=== PATIENT | female | born 1940 | race Caucasian/White ===

== ENCOUNTER 2017-05-25 20:40 | Emergency (ER) | payer MEDICARE, SELFPAY ==
[2017-05-25 21:16] VITALS: BP 131/53; PULSE 79; RESP 20; TEMP 36.9; O2SAT 98; BMI 31.6
--- NOTE | 2017-05-25 21:20 | HMH.EDUTC ---
[facility] [place] Disposition Clinical Impression: Gastroenteritis Disposition: Home, Self-Care Condition on Discharge: Good Instructions: DI for Viral Gastroenteritis -- Adult Additional Instructions: f/u with Dr Magdaleno Walker as scheduled Prescriptions: Ondansetron [Zofran 8mg ODT] 8 mg PO TID PRN 5 Days #15 tab PRN Reason: Vomiting Referrals: Elvin Dolan MD [Primary Care Provider] - Time of Disposition: 21:40 Medical Decision Making - Medical Records Medical records reviewed: Yes: I reviewed the patient's medical records. - Miko Inquiry Pt receiving controlled substance: No Vital Signs: 05/25/17 21:16 Temperature 98.5 F Temperature Source Temporal Artery Scan Pulse Rate [Right Radial] 79 Respiratory Rate 20 Blood Pressure [Right Arm] 131/53 Blood Pressure Mean [Right Arm] 79 02 Sat by Pulse Oximetry 98 Oxygen Delivery Method Room Air - Lab Data Lab results reviewed: Yes: I reviewed the patient's lab results. Orders (Tests/Meds): ED MEDICATIONS Discontinued Medications Generic Name Dose Route Start Last Admin Trade Name Freq PRN Reason Stop Dose Admin Ondansetron HCl 4 mg 05/25/17 21:29 05/25/17 21:31 Zofran 4mg Odt SL 05/25/17 21:30 4 mg ONCE ONE Administration [facility] [place] HPI - General Stated complaint: V/D Time Seen by Provider: 05/25/17 21:15 Mode of Arrival: Family Vehicle Limitations: No Limitations Description of Symptoms (Recalled from Triage Doc. by RN): PT C/O DIARRHEA, ABDOMINAL PAIN, BODY ACHES, CHILLS,FEVER SINCE THIS AM. HEENT Symptoms (Recalled from RN notes): Yes (BODY ACHES, CHILLS,FEVER) Resp Symptoms (Recalled from RN notes): No Skin Symptoms (Recalled from RN notes): No MS Symptoms (Recalled from RN notes): No Functional Status (Recalled from RN notes): NA - History of Present Illness Provider Complaint: Patient was awakened from sleep this am with epigastric pain. Vomited X 1. Has had numerous episodes of diarrrhea. Has had chills and aches. No fever. Has tolerated liquids. Burning in epigastric region. No LLQ pain. No hematuria. Does have history of diverticulitis. No recent antibiotics. Took Pepto Bismol. Diarrhea has slowed. Onset (ago): hour(s) (15) Location: abdomen Associated symptoms: fever/chills, malaise Treatments prior to arrival: none - Related Data Previous Rx's Medication Instructions Recorded Ondansetron [Zofran 8mg ODT] 8 mg PO TID PRN 5 Days #15 tab 05/25/17 Allergies Allergy/AdvReac Type Severity Reaction Status Date / Time No Known Allergies Allergy Unverified 02/25/17 14:41 - Worker's Comp Is this a Worker's Comp case?: No [facility] History I have reviewed the patient's past medical history: Yes Medical History: Reports:: Diabetes Mellitus Type 2 Denies:: Cancer, Diabetes Mellitus Type 1, MRSA Amputation: No Fractures: No - Social History Smoking Status: Never smoker Alcohol Intake: never - Psychiatric History Expresses thoughts of harming self/others: None Suicide Plan Description: No Plan ROS Obtained: Yes All systems reviewed & no additional complaints - Constitutional Constitutional: Reports body ache, Reports chills - Gastrointestinal Gastrointestingal: Reports: diarrhea, vomiting Physical Exam - General General appearance: alert, in no apparent distress - Head Head exam: atraumatic, normocephalic, normal inspection - Eye Eye exam: Present: normal appearance, PERRL, EOMI - ENT ENT exam: Present: normal exam, normal oropharynx, mucous membranes moist, TM's normal bilaterally, normal external ear exam - Neck Neck exam: Present: normal inspection, full ROM, trachea midline. Absent: meningismus, lymphadenopathy - Chest Chest inspection: Present: normal inspection, symmetric chest wall rise. Absent: tenderness - Respiratory Respiratory exam: Present: normal lung sounds bilaterally. Absent: respiratory distress - Cardiovascular Cardiovascular exam: Presen
--- NOTE | 2017-05-25 21:31 | ED_ITS ---
[facility] [place] Disposition Clinical Impression: Gastroenteritis Disposition: Home, Self-Care Condition on Discharge: Good Instructions: DI for Viral Gastroenteritis -- Adult Additional Instructions: f/u with Dr Magdaleno Walker as scheduled Prescriptions: Ondansetron [Zofran 8mg ODT] 8 mg PO TID PRN 5 Days #15 tab PRN Reason: Vomiting Referrals: Elvin Dolan MD [Primary Care Provider] - Time of Disposition: 21:40 Medical Decision Making - Medical Records Medical records reviewed: Yes: I reviewed the patient's medical records. - Miko Inquiry Pt receiving controlled substance: No Vital Signs: 05/25/17 21:16 Temperature 98.5 F Temperature Source Temporal Artery Scan Pulse Rate [Right Radial] 79 Respiratory Rate 20 Blood Pressure [Right Arm] 131/53 Blood Pressure Mean [Right Arm] 79 02 Sat by Pulse Oximetry 98 Oxygen Delivery Method Room Air - Lab Data Lab results reviewed: Yes: I reviewed the patient's lab results. Orders (Tests/Meds): ED MEDICATIONS Discontinued Medications Generic Name Dose Route Start Last Admin Trade Name Freq PRN Reason Stop Dose Admin Ondansetron HCl 4 mg 05/25/17 21:29 05/25/17 21:31 Zofran 4mg Odt SL 05/25/17 21:30 4 mg ONCE ONE Administration [facility] [place] HPI - General Stated complaint: V/D Time Seen by Provider: 05/25/17 21:15 Mode of Arrival: Family Vehicle Limitations: No Limitations Description of Symptoms (Recalled from Triage Doc. by RN): PT C/O DIARRHEA, ABDOMINAL PAIN, BODY ACHES, CHILLS,FEVER SINCE THIS AM. HEENT Symptoms (Recalled from RN notes): Yes (BODY ACHES, CHILLS,FEVER) Resp Symptoms (Recalled from RN notes): No Skin Symptoms (Recalled from RN notes): No MS Symptoms (Recalled from RN notes): No Functional Status (Recalled from RN notes): NA - History of Present Illness Provider Complaint: Patient was awakened from sleep this am with epigastric pain. Vomited X 1. Has had numerous episodes of diarrrhea. Has had chills and aches. No fever. Has tolerated liquids. Burning in epigastric region. No LLQ pain. No hematuria. Does have history of diverticulitis. No recent antibiotics. Took Pepto Bismol. Diarrhea has slowed. Onset (ago): hour(s) (15) Location: abdomen Associated symptoms: fever/chills, malaise Treatments prior to arrival: none - Related Data Previous Rx's Medication Instructions Recorded Ondansetron [Zofran 8mg ODT] 8 mg PO TID PRN 5 Days #15 tab 05/25/17 Allergies Allergy/AdvReac Type Severity Reaction Status Date / Time No Known Allergies Allergy Unverified 02/25/17 14:41 - Worker's Comp Is this a Worker's Comp case?: No [facility] History I have reviewed the patient's past medical history: Yes Medical History: Reports:: Diabetes Mellitus Type 2 Denies:: Cancer, Diabetes Mellitus Type 1, MRSA Amputation: No Fractures: No - Social History Smoking Status: Never smoker Alcohol Intake: never - Psychiatric History Expresses thoughts of harming self/others: None Suicide Plan Description: No Plan ROS Obtained: Yes All systems reviewed & no additional complaints - Constitutional Constitutional: Reports body ache, Reports chills - Gastrointestinal Gastrointestingal: Reports: diarrhea, vomiting Physical Exam - General
[2017-05-25 21:41] VITALS: BP 129/89; PULSE 72; RESP 18; TEMP 36.8; O2SAT 100
[2017-05-28 09:29] LABS: UTC Influenza A Antigen Negative (Negative); UTC Influenza B Antigen Negative (Negative)
== END 2017-05-25 21:43 | disposition home or self-care (01) ==
PROVIDERS: Emergency Provider Physician Assistant; Family Provider Internal Medicine Adolescent Medicine; PCP Internal Medicine Adolescent Medicine
DX: K52.9 Noninfective gastroenteritis and colitis, unspecified (principal); R10.13 Epigastric pain; E11.9 Type 2 diabetes mellitus without complications
CPT/HCPCS: G0463; 87804; 99201

== ENCOUNTER → 2017-07-25 13:05 | Outpatient (CLI) | payer MEDICARE, SELFPAY ==
--- NOTE | 2017-07-25 | XR_ITS ---
XR knee RT 3V HISTORY: Posttraumatic pain ITS.REASON: FALL..PAIN ORDERING PHYSICIAN: Jazmine Verduzco PATIENT AGE: 76 years COMPARISON: None FINDINGS: Moderate to severe osteoarthritic changes are present involving the medial compartment and patellofemoral joint with mild osteoarthritic change of the lateral compartment. No acute fracture or dislocation is evident. No lytic or blastic change. There may be a small suprapatellar effusion. There is pain calcification in the suprapatellar region. IMPRESSION: Moderate to severe osteoarthritis, no acute fracture
--- NOTE | 2017-07-25 13:32 | CT_ITS ---
CT head/brain wo con HISTORY: Headache, pain, contusion/laceration along the right side with radiation following injury ITS.REASON: FALL ORDERING PHYSICIAN: Jazmine Verduzco PATIENT AGE: 76 years COMPARISON: None TECHNIQUE: Axial images obtained without contrast. Brain and bone windows reviewed. All CT scans at the facility use one or more dose reduction, viz: automated exposure control; ma/kV adjustment per patient size (including targeted exams where dose is matched to indication; i.e. head); or iterative reconstruction technique. FINDINGS: No midline shift, mass effect, intracranial hemorrhage, hydrocephalus, or extra-axial fluid collection is evident. There is soft tissue swelling in the right frontal region in the supraorbital area The calvarium has an unremarkable appearance. No mastoid effusion. No sinus air-fluid levels.. IMPRESSION: 1. No acute intracranial findings. 2. Right supraorbital hematoma
--- NOTE | 2017-07-25 13:32 | CT_ITS ---
CT facial bones wo con CLINICAL INDICATION: Facial pain and swelling/hematoma/abrasion following injury to the right eye ITS.REASON: FALL ORDERING PHYSICIAN: Jazmine Verduzco PATIENT AGE: 76 years COMPARISON: None TECHNIQUE:Axial, sagittal, and coronal images are generated and reviewed without contrast. All CT scans at the facility use one or more dose reduction, viz: automated exposure control; ma/kV adjustment per patient size (including targeted exams where dose is matched to indication; i.e. head); or iterative reconstruction technique. FINDINGS: Moderate soft tissue swelling is present in the right supraorbital region and frontal area consistent with hematoma. No fracture evident. The right globe has an unremarkable appearance. No sinus air-fluid level. No radio opaque foreign bodies. There is a small right mildred bullosa as a normal variant. Osteoarthritic changes are present at the TMJs There is cortical irregularity with cystic changes involving the right nasal bone distally. This is of uncertain clinical significance. No soft tissue swelling is evident at this area. This could be related to old fracture. Please correlate clinically. IMPRESSION: 1. No definite acute fracture. 2. Right supraorbital/frontal scalp hematoma 3. Cortical irregularity of the right nasal bone distally without soft tissue swelling which may be due to old fracture. Please correlate with clinical findings
== END ==
PROVIDERS: PCP Internal Medicine Adolescent Medicine; Visit Provider Nurse Practitioner Family
DX: M25.561 Pain in right knee (principal); T14.8XXA Other injury of unspecified body region, initial encounter; W19.XXXA Unspecified fall, initial encounter
CPT/HCPCS: 70450; 70486; 73562

== ENCOUNTER → 2017-12-15 10:13 | Outpatient (CLI) | payer MEDICARE, SELFPAY ==
--- NOTE | 2017-12-15 10:18 | CA_ITS ---
PROCEDURE: 2-D M-mode and color Doppler study INDICATIONS FOR THE TEST: Chest pain COPD Heart Murmur Tobacco Smoking Palpitations Fatigue Syncope Edema Hypertension+Diabetes Mellitus Rheumatic Fever SOB+MONROE Obesity+Hyperlipidemia Family History HD Additional History CHF PATIENT INFORMATION HEIGHT: 68 WEIGHT:208 GENDER: Female B/P:120/74 2-D/M-MODE INTERPRETATION: 2-D MEASUREMENTS OBSERVED VALUES IN CMS Right Ventricular Dimension (RVDd) 2.6 Interventricular Septum (Thickness)(IVsd) 1.4 Left Ventricular Internal Dimensions(LVIDd) 4.7 Left Ventricular Posterior Wall (Thickness)(LVPWd) 1.5 Aortic Root 3.4 Aortic Cusp Separation 1.9 Left Atrial Dimensions (LAD) 4.0 2D 1. Left atrium is mildly enlarged, left ventricle is normal size, mild concentric left ventricular hypertrophy, visually estimated ejection fraction 50% with no regional wall motion abnormality, endocardial surfaces are poorly visualized. 2. The right atrium and right ventricle are normal size and contractility. 3. The aortic valve is minimally thickened and fibrosed. 4. The mitral and tricuspid valve leaflets are minimally thickened 5. The pulmonic valve is poorly visualized. 6. No significant pericardial effusion noted. DOPPLER INTERROGATION: Doppler interrogation of the aortic, mitral and tricuspid valvular presence of moderate mitral and mild tricuspid regurgitation, tricuspid regurgitation jet velocity is insufficient for calculation of the right ventricular systolic pressure, grade 1 diastolic dysfunction seen with tissue Doppler evidence of raised left atrial pressure. CONCLUSION: 1. Mildly enlarged left atrium, normal left ventricular size, mild concentric left ventricular hypertrophy, visually estimated ejection fraction 50% with no regional wall motion abnormality, grade 1 diastolic dysfunction seen with tissue Doppler evidence of raised left atrial pressure. 2. Moderate mitral and mild tricuspid regurgitation 3. No significant pericardial effusion noted.
[2017-12-15 10:40] VITALS: PULSE 54; PULSE 60
== END ==
PROVIDERS: Family Provider Internal Medicine Adolescent Medicine; PCP Internal Medicine Adolescent Medicine; Visit Provider Internal Medicine Adolescent Medicine
DX: R06.02 Shortness of breath (principal); I50.30 Unspecified diastolic (congestive) heart failure
CPT/HCPCS: 93306; 94060; 94640; 94726; 94729

== ENCOUNTER → 2019-03-15 15:23 | Outpatient (CLI) | payer MEDICARE, SELFPAY ==
--- NOTE | 2019-03-15 15:28 | XR_ITS ---
PROCEDURE: XR CHEST 2V CLINICAL HISTORY: COUGH COMPARISON: CXR CHEST(2 VIEWS-NOT PORTABLE) from 06/25/2013 CXR CHEST(2 VIEWS-NOT PORTABLE) from 07/14/2014 CXR CHEST(2 VIEWS-NOT PORTABLE) from 06/27/2016 FINDINGS: The cardiomediastinal silhouette and pulmonary vascularity are within normal limits. There are chronic changes in the lung bases with some increased density in the right lung base with some silhouetting out of the hemidiaphragm suggesting superimposed infiltrate. No acute bony abnormalities. IMPRESSION: Chronic change with suspected right basilar atelectasis or infiltrate Dictated by: Sid Greene MD 03/15/2019 19:31 Electronically signed by Sid Greene MD in [place] 03/15/2019 19:31
== END ==
PROVIDERS: PCP Internal Medicine Adolescent Medicine; Visit Provider Internal Medicine Adolescent Medicine
DX: R05 Cough (principal)
CPT/HCPCS: 71046

== ENCOUNTER → 2019-04-21 11:01 | Outpatient (CLI) | payer MEDICARE, SELFPAY ==
[2019-04-21 14:25] LABS: Alanine Aminotransferase 28 U/L (9-52); Albumin Level 3.7 g/dL (3.4-5.0); Albumin/Globulin Ratio 1.2 (1.1-1.8); Alkaline Phosphatase 121 U/L (46-116); Anion Gap 13.4 mEq/L (5-15); Aspartate Amino Transferase 15 U/L (15-37); Bilirubin,Total 0.4 mg/dL (0.2-1.0); Blood Urea Nitrogen 28 mg/dL (7-18); Calcium 9.2 mg/dL (8.5-10.1); Carbon Dioxide 30 mmol/L (21.0-32.0); Chloride 108 mmol/L (98-107); Chol/HDL Ratio 3.1 (1-3.5); Cholesterol 213 mg/dL (140-200); Creatinine,Serum 1.26 mg/dL (0.55-1.02); Estimated Glomerular Filt Rate 41 ml/min (>60); GFR (African American) 50 ML/MIN (>60); Glucose 82 mg/dL (74-106); HDL Cholesterol 68 mg/dL (29-89); LDL Cholesterol 133 mg/dL (0-130); Potassium 4.4 mmoL/L (3.5-5.1); Sodium 147 mmol/L (137-145); Total Protein,Serum 6.7 g/dL (6.4-8.2); Triglycerides 59 mg/dL (30-200); VLDL Cholesterol 12 mg/dL (0-40)
== END ==
PROVIDERS: Visit Provider Nurse Practitioner Family
DX: Z00.00 Encounter for general adult medical examination without abnormal findings (principal); E78.5 Hyperlipidemia, unspecified; M10.9 Gout, unspecified
CPT/HCPCS: 36415; 80053; 80061; 84550

== ENCOUNTER → 2019-08-17 13:17 | Outpatient (CLI) | payer MEDICARE, SELFPAY ==
[2019-08-17 14:13] LABS: Basophils % 0.6 % (0.1-2.0); Eosinophils # 0.2 K/mm3 (0.0-0.4); Eosinophils % 2.4 % (0.1-12.0); Hematocrit 37.1 % (37.0-47.0); Hemoglobin 12.2 g/dL (12.2-16.2); Lymphocytes # 1.9 K/mm3 (0.7-4.5); Mean Corpuscular HGB Conc 32.9 g/dL (31.8-35.4); Mean Corpuscular Hemoglobin 31.2 pg (27.0-31.2); Mean Corpuscular Volume 94.8 fl (81-99); Mean Platelet Volume 8.6 fl (7.4-10.4); Monocytes # 0.3 K/mm3 (0.1-1.0); Monocytes % 4.9 % (1.7-9.3); Neutrophils # 4.5 K/mm3 (1.8-7.8); Neutrophils % 65.1 % (37.0-80.0); Platelet Count 163 K/mm3 (142-424); Red Blood Count 3.92 M/mm3 (4.20-5.40); Red Cell Distribution Width 13.6 % (11.5-17.5)
[2019-08-17 14:40] LABS: Alanine Aminotransferase 15 U/L (12-78); Albumin Level 4.4 g/dl (3.5-5.0); Albumin/Globulin Ratio 1.6 (1.1-1.8); Alkaline Phosphatase 116 U/L (38-126); Anion Gap 13.7 mEq/L (5-15); Aspartate Amino Transferase 25 U/L (14-36); Bilirubin,Total 0.5 mg/dl (0.2-1.3); Blood Urea Nitrogen 36 mg/dl (7-17); Calcium 10.4 mg/dl (8.4-10.2); Carbon Dioxide 31 mmol/L (22.0-30.0); Chloride 100 mmol/L (98-107); Chol/HDL Ratio 2.3 (1-3.5); Cholesterol 202 mg/dl (140-200); Estimated Glomerular Filt Rate 44 ml/min (>60); GFR (African American) 53 ML/MIN (>60); Globulin 2.8 g/dL (1.3-3.2); Glucose 99 mg/dl (74-100); HDL Cholesterol 89 mg/dl (40-60); Potassium 4.7 mmoL/L (3.5-5.1); Sodium 140 mmol/L (136-145); Total Protein,Serum 7.2 g/dl (6.3-8.2); Triglycerides 63 mg/dl (30-150); VLDL Cholesterol 13 mg/dL (0-40)
[2019-08-17 14:49] LABS: NT Pro Brain Natriuretic Pep. 206 pg/mL (0-450)
[2019-08-17 14:52] LABS: Direct LDL Cholesterol 112.22 mg/dL (100-129)
[2019-08-17 17:14] LABS: Hemoglobin A1C 5.4 % (4.0-6.0)
[2019-08-19 09:13] LABS: Vitamin B12 542 pg/mL (232-1245); Vitamin D 25 Hydroxy 29.2 ng/mL (30.0-100.0)
== END ==
PROVIDERS: Visit Provider Internal Medicine Adolescent Medicine
DX: E78.5 Hyperlipidemia, unspecified (principal); G60.9 Hereditary and idiopathic neuropathy, unspecified; I50.30 Unspecified diastolic (congestive) heart failure; E55.9 Vitamin D deficiency, unspecified
CPT/HCPCS: 36415; 80053; 80061; 82607; 82652; 83036; 83880; 85025

== ENCOUNTER → 2020-01-13 13:03 | Outpatient (CLI) | payer MEDICARE, SELFPAY ==
--- NOTE | 2020-01-13 13:09 | XR_ITS ---
PROCEDURE: XR CHEST PORTABLE CLINICAL HISTORY: COVID OUT PATIENT Shortness of breath, cough COMPARISON: No exams were available for comparison FINDINGS: Mild cardiomegaly without failure. There is evidence of old granulomatous disease. There are chronic changes in the right lung base. There is some silhouetting out of the right hemidiaphragm which could be seen with right basilar infiltrate. Upright PA and lateral chest may provide further evaluation. No acute bony abnormalities. IMPRESSION: Cardiomegaly with chronic changes with possible right basilar infiltrate Dictated by: Sid Greene MD 01/13/2020 14:33 Sid Greene MD in [place] 01/13/2020 14:33
[2020-01-13 15:28] LABS: Basophils # 0.1 K/mm3 (0-0.2); Basophils % 1.4 % (0.1-2.0); Eosinophils # 0.3 K/mm3 (0.0-0.4); Eosinophils % 3.9 % (0.1-12.0); Hemoglobin 12.6 g/dL (12.2-16.2); Lymphocytes # 1.8 K/mm3 (0.7-4.5); Lymphocytes % 24.8 % (10-50); Mean Corpuscular HGB Conc 31.6 g/dL (31.8-35.4); Mean Corpuscular Hemoglobin 30.4 pg (27.0-31.2); Mean Corpuscular Volume 96.2 fl (81-99); Mean Platelet Volume 9.7 fl (7.4-10.4); Monocytes # 0.5 K/mm3 (0.1-1.0); Monocytes % 7.4 % (1.7-9.3); Neutrophils # 4.5 K/mm3 (1.8-7.8); Neutrophils % 62.5 % (37.0-80.0); Platelet Count 180 K/mm3 (142-424); Red Blood Count 4.15 M/mm3 (4.20-5.40); White Blood Count 7.1 K/mm3 (4.8-10.8)
[2020-01-13 15:45] LABS: Chloride 103 mmol/L (98-107); Potassium 4.5 mmoL/L (3.5-5.1); Sodium 141 mmol/L (136-145)
[2020-01-13 15:48] LABS: Alanine Aminotransferase 30 U/L (12-78); Albumin Level 4.1 g/dl (3.5-5.0); Albumin/Globulin Ratio 1.6 (1.1-1.8); Alkaline Phosphatase 92 U/L (38-126); Anion Gap 12.5 mEq/L (5-15); Aspartate Amino Transferase 34 U/L (14-36); Bilirubin,Total 0.3 mg/dl (0.2-1.3); Blood Urea Nitrogen 32 mg/dl (7-17); Carbon Dioxide 30 mmol/L (22.0-30.0); Estimated Glomerular Filt Rate 44 ml/min (>60); GFR (African American) 53 ML/MIN (>60); Globulin 2.6 g/dL (1.3-3.2); Total Protein,Serum 6.7 g/dl (6.3-8.2)
[2020-01-13 15:49] LABS: Calcium 9.8 mg/dl (8.4-10.2); Glucose 94 mg/dl (74-100)
[2020-01-13 16:23] LABS: Coronavirus 19 IgG Antibody Negative (Negative); Coronavirus 19 IgM Antibody Negative (Negative)
[2020-01-13 17:34] LABS: Erythrocyte Sedimentation Rate 132 mm/hr (0-30)
== END ==
PROVIDERS: PCP Internal Medicine Adolescent Medicine; Visit Provider Internal Medicine Adolescent Medicine
DX: Z03.818 Encounter for observation for suspected exposure to other biological agents ruled out (principal); R05 Cough; J18.9 Pneumonia, unspecified organism
CPT/HCPCS: 36415; 71045; 80053; 85025; 85651; 86328

== ENCOUNTER → 2020-07-13 13:33 | Outpatient (CLI) | payer MEDICARE, SELFPAY ==
--- NOTE | 2020-07-13 13:38 | XR_ITS ---
PROCEDURE: XR LUMBAR SPINE MIN 4V CLINICAL INDICATION: LOW BACK PAIN AT MULTIPLE SITES COMPARISON: No exams were available for comparison FINDINGS: Mild lumbar curvature convex left. Multilevel degenerative disc disease from L1-S1 most progressed at L3-L4 and L5-S1. Endplate osteophytes are present from L1-S1. No acute fracture or dislocation. No lytic or blastic change. There is mild facet arthritic changes L5-S1. The SI joints have an unremarkable appearance. There is a moderate amount of retained colonic feces. Mild osteoarthritic changes are present in the hips IMPRESSION: Multilevel lumbar spondylosis as described above. Dictated by: Sid Greene MD 07/13/2020 14:10 Sid Greene MD in [place] 07/13/2020 14:10
== END ==
PROVIDERS: PCP Internal Medicine Adolescent Medicine; Visit Provider Internal Medicine Adolescent Medicine
DX: M54.5 Low back pain (principal)
CPT/HCPCS: 72110

== ENCOUNTER → 2020-09-18 11:45 | Outpatient (CLI) | payer MEDICARE, SELFPAY ==
--- NOTE | 2020-09-18 11:49 | XR_ITS ---
PROCEDURE: XR ANKLE RT MIN 3V CLINICAL INDICATION: CELLULITIS OF RT ANKLE COMPARISON: No exams were available for comparison FINDINGS: No fracture or dislocation. No lytic or blastic change. There is normal mineralization. Minimal soft tissue swelling noted along the lateral aspect of the ankle with suggestion of a small cutaneous defect. No bony destructive changes. There is a thin linear calcific density along the medial malleolar region and may represent an old avulsion fracture. There is a small calcaneal spur. Degenerative changes are present in the foot at the navicular cuneiform and there are prominent posterior osteophytes at the tarsal metatarsal junction. IMPRESSION: No evidence of osteomyelitis. Mild soft tissue swelling lateral malleolar region with questionable cutaneous defect Degenerative changes of the midfoot and possible old avulsion fracture of the medial malleolus Dictated by: Sid Greene MD 09/18/2020 12:18 Sid Greene MD in [place] 09/18/2020 12:18
== END ==
PROVIDERS: PCP Internal Medicine Adolescent Medicine; Visit Provider Internal Medicine Adolescent Medicine
DX: L03.115 Cellulitis of right lower limb (principal)
CPT/HCPCS: 73610

== ENCOUNTER → 2021-01-17 07:45 | Outpatient (CLI) | payer MEDICARE, SELFPAY ==
--- NOTE | 2021-01-17 07:52 | MR_ITS ---
PROCEDURE INFORMATION: Exam: MR Right Lower Extremity Joint Without Contrast; Ankle Exam date and time: 01/17/2021 7:52 AM Age: 80 years old Clinical indication: Pain; Ankle; Right; Additional info: Cellulitis of right ankle. Lateral sided ankle pain. Reddness [id number]. No injury or trauma. -prior x-ray 09-18-20 TECHNIQUE: Imaging protocol: MR of the Right lower extremity without contrast. Exam focused on the ankle. COMPARISON: CR XR ANKLE RT MIN 3V 09/18/2020 12:02 PM FINDINGS: Bones and cartilage: There is no evidence of osteomyelitis. No fracture or dislocation is present. There is severe primary osteoarthritis of the second and third tarsometatarsal joints. There is no acute fracture or dislocation. Joint spaces: No significant joint effusion. LIGAMENTS: Distal tibiofibular syndesmosis: Unremarkable. No tear. Anterior talofibular ligament: Unremarkable. No tear. Posterior talofibular ligament: Unremarkable. No tear. Calcaneofibular ligament: Unremarkable. No tear. Deltoid ligament complex: Unremarkable. No tear. TENDONS: Flexor tendons of foot: Fluid surrounding the flexor hallucis tendon has likely decompressed from the ankle joint. Tibialis posterior tendon: Mild tenosynovitis involves the tibialis posterior tendon. Peroneal tendons: Unremarkable as visualized. Extensor tendons of foot: Unremarkable as visualized. Tibialis anterior tendon: Unremarkable. Achilles tendon: Mild reactive-appearing edema involves the dorsal calcaneus at the Achilles tendon attachment. Tarsal canal (Sinus tarsi): Edema in the sinus tarsi region is proportional to the adjacent soft tissue edema. The cervical ligament appears intact. Tarsal tunnel: Unremarkable. Muscles: The foot muscles are severely atrophied. Soft tissues: There is a moderate amount of edema in the subcutaneous fat. There is no focal fluid collection or soft tissue gas to suggest an abscess. Plantar fascia: Unremarkable. IMPRESSION: 1. Moderate subcutaneous edema consistent with cellulitis. 2. No abscess or osteomyelitis. 3. Severe primary osteoarthritis of the second and third tarsometatarsal joints. 4. Mild tenosynovitis of the tibialis posterior tendon.
== END ==
PROVIDERS: PCP Internal Medicine Adolescent Medicine; Visit Provider Internal Medicine Adolescent Medicine
DX: L03.115 Cellulitis of right lower limb (principal)
CPT/HCPCS: 73721

== ENCOUNTER → 2021-02-05 13:34 | Outpatient (CLI) | payer MEDICARE, SELFPAY ==
--- NOTE | 2021-02-05 13:47 | CT_ITS ---
PROCEDURE: CT HEAD/BRAIN WO CON CLINICAL INDICATION: LT ARM WEAKNESS COMPARISON: CT HEADWO CT head/brain wo con from 07/25/2017 TECHNIQUE: Axial images obtained. All CT scans at the facility use one or more dose reduction, viz: automated exposure control, ma/kV adjustment per patient size (including targeted exams where dose is matched to indication, i.e. head), or iterative reconstruction technique. FINDINGS: No midline shift, mass effect, intracranial hemorrhage, hydrocephalus, or extra-axial fluid collection is evident. The calvarium has an unremarkable appearance. No mastoid effusion. There is complete opacification the sphenoid sinus.. The sphenoid sinus is somewhat prominent extending into the temporal bone medially. IMPRESSION: No acute intracranial findings. Complete opacification of the sphenoid sinus Dictated by: Sid Greene MD 02/05/2021 14:15 Sid Greene MD in [place] 02/05/2021 14:15
[2021-02-05 14:03] LABS: Basophils # 0.1 K/mm3 (0-0.2); Basophils % 0.8 % (0.1-2.0); Eosinophils # 0.1 K/mm3 (0.0-0.4); Eosinophils % 1.4 % (0.1-12.0); Hematocrit 38.3 % (37.0-47.0); Hemoglobin 12.6 g/dL (12.2-16.2); Lymphocytes # 1.9 K/mm3 (0.7-4.5); Lymphocytes % 18.7 % (10-50); Mean Corpuscular HGB Conc 32.8 g/dL (31.8-35.4); Mean Corpuscular Hemoglobin 30.6 pg (27.0-31.2); Mean Corpuscular Volume 93.4 fl (81-99); Mean Platelet Volume 8.9 fl (7.4-10.4); Monocytes # 0.6 K/mm3 (0.1-1.0); Monocytes % 5.9 % (1.7-9.3); Neutrophils # 7.6 K/mm3 (1.8-7.8); Neutrophils % 73.4 % (37.0-80.0); Platelet Count 237 K/mm3 (142-424); Red Cell Distribution Width 13.6 % (11.5-17.5); White Blood Count 10.4 K/mm3 (4.8-10.8)
[2021-02-05 15:36] LABS: Alanine Aminotransferase 9 U/L (12-78); Albumin Level 4.2 g/dl (3.5-5.0); Albumin/Globulin Ratio 1.6 (1.1-1.8); Alkaline Phosphatase 93 U/L (38-126); Anion Gap 11.6 mEq/L (5-15); Aspartate Amino Transferase 25 U/L (14-36); Bilirubin,Total 0.3 mg/dl (0.2-1.3); Blood Urea Nitrogen 23 mg/dl (7-17); Calcium 10.1 mg/dl (8.4-10.2); Carbon Dioxide 34 mmol/L (22.0-30.0); Chloride 101 mmol/L (98-107); Estimated Glomerular Filt Rate 43 ml/min (>60); GFR (African American) 53 ML/MIN (>60); Globulin 2.6 g/dL (1.3-3.2); Glucose 100 mg/dl (74-100); Potassium 4.6 mmoL/L (3.5-5.1); Sodium 142 mmol/L (136-145); Total Protein,Serum 6.8 g/dl (6.3-8.2)
[2021-02-07 17:14] LABS: Calcium, Ionized 5.6 mg/dL (4.5-5.6)
== END ==
PROVIDERS: Visit Provider Internal Medicine Adolescent Medicine
DX: R29.898 Other symptoms and signs involving the musculoskeletal system (principal); R20.0 Anesthesia of skin; R53.1 Weakness
CPT/HCPCS: 36415; 70450; 80053; 82330; 85025

== ENCOUNTER 2021-06-30 12:10 | Emergency (ER) | payer MEDICARE, SELFPAY ==
[2021-06-30 13:44] VITALS: BP 157/55; PULSE 83; RESP 20; TEMP 37; O2SAT 96; BMI 28.1
[2021-06-30 13:57] LABS: UTC Influenza A Antigen Negative (Negative); UTC Influenza B Antigen Negative (Negative)
--- NOTE | 2021-06-30 14:05 | HMH.EDUTC ---
[facility] [place] Disposition Clinical Impression: Acute bronchitis Qualifiers: Bronchitis organism: unspecified organism Qualified Code(s): J20.9 - Acute bronchitis, unspecified Sinusitis Qualifiers: Sinusitis location: unspecified location Chronicity: acute Recurrence: non-recurrent Qualified Code(s): J01.90 - Acute sinusitis, unspecified Disposition: Home, Self-Care Condition on Discharge: Good Instructions: Sinusitis, DI for Sinusitis, DI for Acute Bronchitis Additional Instructions: Take tylenol for pain or fever. Take the medications as directed. Follow up with your regular doctor. GO TO THE ER FOR ANY WORSENING SYMPTOMS Don't start the oral steroids until tomorrow, since you had the shot here today. Prescriptions: Benzonatate [Benzonatate 100mg cap] 100 mg PO TIDP PRN #30 cap PRN Reason: Cough [facility]: [id number] methylPREDNISolone [Medrol] 4 mg PO DIRECTED 6 Days #21 packet Transmission Status: Received by [id number] guaiFENesin [Mucinex 600mg tablet] 1 - 2 tab PO BIDP PRN #30 tab PRN Reason: Congestion Transmission Status: Received by [id number] Azithromycin [Z-Bart 250mg Tab*] 250 mg PO UD DOSE PK #6 tab Transmission Status: [id number] Referrals: Elvin Dolan MD [Primary Care Provider] - Time of Disposition: 15:43 Medical Decision Making - Medical Records Medical records reviewed: No: I reviewed the patient's medical records. - Miko Inquiry Pt receiving controlled substance: No Vital Signs: 06/30/21 13:44 06/30/21 15:57 Temperature 98.6 F 98.6 F Temperature Source Oral Pulse Rate 83 Pulse Rate [Left] 83 Respiratory Rate 20 16 Blood Pressure 157/55 H Blood Pressure [Right Arm] 157/55 H Blood Pressure Mean [Right Arm] 89 02 Sat by Pulse Oximetry 96 - Lab Data Lab Results 06/30/21 13:43: Influenza Type A Ag Negative, Influenza Type B Ag Negative 06/30/21 13:44: Group A Strep Rapid Negative 06/30/21 15:46: Chlamy pneumoniae PCR Not detected, Adenovirus (PCR) Not detected, B. pertussis DNA (PCR) Not detected, Coronavirus OC43 (PCR) Not detected, Coronavirus HKU1 (PCR) Not detected, Coronavirus 229E (PCR) Not detected, SARS-CoV-2 (PCR) Not detected, Coronavirus NL63 (PCR) Not detected, Human Metapneumovir PCR Not detected, Influenza A (H1) PCR Not detected, Influ A (H1N1/09) PCR Not detected, Influenza A (H3) PCR Not detected, Influenza Type A (PCR) Not detected, Influenza Type B (PCR) Not detected, M. pneumoniae (PCR) Not detected, Parainfluenza 1 (PCR) Not detected, Parainfluenza 2 (PCR) Not detected, Parainfluenza 3 (PCR) Not detected, Parainfluenza 4 (PCR) Not detected, RSV (PCR) Not detected, Entero/Rhino (PCR) Detected A Orders (Tests/Meds): ED MEDICATIONS Discontinued Medications Generic Name Dose Route Start Last Admin Trade Name Freq PRN Reason Stop Dose Admin Ceftriaxone Sodium 1 gm 06/30/21 15:20 06/30/21 15:28 Ceftriaxone 1gm Vial IM 06/30/21 15:21 1 gm ONCE ONE Administration Lidocaine HCl 0 ml 06/30/21 15:20 06/30/21 15:29 Lidocaine 1% 5ml Pf Vial IM 06/30/21 15:21 2 ml ONCE ONE Administration Methylprednisolone Sodium Succinate 125 mg 06/30/21 15:20 06/30/21 15:29 Methylprednisolone Sod Succ 125mg Vial IM 06/30/21 15:21 125 mg ONCE ONE Administration ORDERS Category Date Time Status Strep Screen Confirmation Stat Micro 06/30/21 13:44 Received [facility] [place] HPI - General Stated complaint: SOA,cough Time Seen by Provider: 06/30/21 14:06 Mode of Arrival: Ambulatory Source of Information: Patient Limitations: No Limitations Description of Symptoms (Recalled from Triage Doc. by RN): pt c/o watery eyes, nasal drainage, fever, SOA and a sore throat since yesterday. HEENT Symptoms (Recalled from RN notes): Yes Resp Symptoms (Recalled from RN notes): Yes Skin Symptoms (Recalled from RN notes): No MS Symptoms (Recalled from RN
[2021-06-30 14:09] LABS: Strep Scrn Group A (Rapid) Negative (Negative)
--- NOTE | 2021-06-30 14:13 | XR_ITS ---
PROCEDURE INFORMATION: Exam: XR Chest Exam date and time: 06/30/2021 2:13 PM Age: 80 years old Clinical indication: Cough; Additional info: Cough, congestion TECHNIQUE: Imaging protocol: XR of the chest. Views: 2 views. COMPARISON: CR XR CHEST PORTABLE 01/13/2020 1:14 PM FINDINGS: Lungs: Mild increase in the lung volumes with slight flattening of the hemidiaphragms. Subtle approximate 4 mm region of nodularity demonstrated laterally in the right upper lobe findings not definitely identified on the previous study. This may correspond to a confluence of shadows. Persistent regions of parenchymal scarring at the lung base. Pleural spaces: Unremarkable. No pleural effusion. No pneumothorax. Heart/Mediastinum: Unremarkable. No cardiomegaly. Bones/joints: Generalized osteopenia. IMPRESSION: 1. Findings suggesting mild changes of chronic obstructive pulmonary disease. 2. No evidence of acute cardiopulmonary disease. 3. Subtle region of nodularity in the right upper lung. Findings may correspond to confluency of shadows.
[2021-06-30 15:57] VITALS: BP 157/55; PULSE 83; RESP 16; TEMP 37
[2021-06-30 18:14] LABS: Adenovirus,PCR Not Detected (NotDetected); Bordetella Pertussis Not Detected (NotDetected); Chlamydophila Pneumoniae, PCR Not Detected (NotDetected); Coronavirus 19, PCR Not Detected (NotDetected); Coronavirus 229E Not Detected (NotDetected); Coronavirus NL63 Not Detected (NotDetected); Coronavirus OC43 Not Detected (NotDetected); Coronovirus HKU1,PCR Not Detected (NotDetected); Human Metapneumovirus Not Detected (NotDetected); Influenza A, PCR Not Detected (NotDetected); Influenza AH1, 2009 Not Detected (NotDetected); Influenza AH1, PCR Not Detected (NotDetected); Influenza AH3,PCR Not Detected (NotDetected); Influenza B, PCR Not Detected (NotDetected); Mycoplasma Pneumoniae, PCR Not Detected (NotDetected); Parainfluenza 1, PCR Not Detected (NotDetected); Parainfluenza 2, PCR Not Detected (NotDetected); Parainfluenza 3, PCR Not Detected (NotDetected); Parainfluenza 4, PCR Not Detected (NotDetected); Respiratory Syncytial Virus Not Detected (NotDetected)
[2021-06-30 19:50] LABS: Rhinovirus/Enterovirus Detected (NotDetected)
== END 2021-06-30 15:58 | disposition home or self-care (01) ==
PROVIDERS: Emergency Provider Nurse Practitioner Family; PCP Internal Medicine Adolescent Medicine
DX: J01.90 Acute sinusitis, unspecified (principal); J02.9 Acute pharyngitis, unspecified; I50.9 Heart failure, unspecified; Z79.1 Long term (current) use of non-steroidal anti-inflammatories (NSAID); Z79.52 Long term (current) use of systemic steroids; Z79.82 Long term (current) use of aspirin; Z79.899 Other long term (current) drug therapy; Z20.822 Contact with and (suspected) exposure to COVID-19; Z82.49 Family history of ischemic heart disease and other diseases of the circulatory system; Z80.9 Family history of malignant neoplasm, unspecified
CPT/HCPCS: 71046; 87430; 87581; 87632; 87798; 87804; 96372; 96375; 99213; C9803; G0463; J0696; U0003; U0005

== ENCOUNTER → 2021-09-14 09:59 | Outpatient (CLI) | payer MEDICARE, SELFPAY ==
--- NOTE | 2021-09-14 10:04 | US_ITS ---
FINAL REPORT CLINICAL HISTORY: decreased pulses, non-healing wounds bilaterally toes. never smoked, HTN, hyperlipidemia, bilateral claudication, bilateral rest pain. FINDINGS: COMPLETE ANKLE/BRACHIAL INDICES BILATERAL The right SLY is 1.09. The left SLY is 1.04. IMPRESSION: ABIs are within normal limits bilaterally. Reviewed, Interpreted and Dictated by Elvis Moreno III, MD Transcribed by Emi Vides Authenticated and [facility]
== END ==
PROVIDERS: PCP Internal Medicine Adolescent Medicine; Visit Provider Podiatrist
DX: R09.89 Other specified symptoms and signs involving the circulatory and respiratory systems (principal)
CPT/HCPCS: 93923

== ENCOUNTER 2021-09-27 14:00 | Outpatient (RCR) | payer MEDICARE, SELFPAY ==
--- NOTE | 2021-09-17 17:21 | HMH.PTOPEV ---
PT Outpatient Evaluation Rehab PT Outpatient Evaluation Start: 09/17/21 15:07 Freq: Status: Active Protocol: Document 09/17/21 15:07 PDESEROUX (Rec: 09/17/21 16:06 PDESEROUX [id number]) Electronically Signed By Jim Min, PT 09/17/21 15:07 Outpatient Therapy Subjective History Subjective History Pt. is a 81 year old female who presents to [facility] in [place] for the initial evaluation this date( 09/17/21) w/ c/o chronic and intermittent LB P! and tightness or insidious onset that has progressively gotten worse in the last 6 months. However, pt. reports having a chronic history of LBP!. Pt. reports having one incident of RLE P! radicular P! awhile back, but states not having that symptom anymore. Pt. also denies any bowel/bladder dysfunction at this time. Pt. reports symptoms in the LB worsen when she stands up, stands at the sink to wash dishes, or carrying her laundry basket. Pt. reports having symptom relief w/ resting and sitting down. Pt. reports asking Dr. Granados if he could treat her LB w/ steroid injections secondary to having symptom relief w/ steroind injections in bilateral knees, however, Dr. Granados instructed pt. to having Physical Therapy prior. Pt. reports having an X-ray in July of last year(2020), but is unable to recall the results. Pt. RTMD 10/05/21. Current medications include Carvedilol, Famotidine, Venlafaxine, Atorvastatin, Furosemide, Tramadol, and Tylenol. PMH includes CHF. Pt. denies history of diabetes, denies cancer(self), denies pacemaker, denies latex nor
== END 2021-11-07 13:36 | disposition home or self-care (01) ==
LOC: PT.CARL 14:00
PROVIDERS: PCP Internal Medicine Adolescent Medicine; Visit Provider Internal Medicine Adolescent Medicine
DX: M54.50 Low back pain, unspecified (principal)
CPT/HCPCS: 97010; 97014; 97110; 97140; 97163; G0283

== ENCOUNTER → 2021-12-24 13:58 | Outpatient (CLI) | payer MEDICARE, SELFPAY ==
--- NOTE | 2021-12-24 14:22 | XR_ITS ---
FINAL REPORT CLINICAL HISTORY: SHORT OF BREATH COMPARISON: June 30, 2021 FINDINGS: Two views of the chest were obtained. The heart size and pulmonary vascularity are within normal limits. The mediastinum is normal. The lungs are hyperinflated consistent with COPD. There is mild right lung base atelectasis or pneumonia. There is no pneumothorax. The bony thorax is intact. IMPRESSION: Mild right lung base atelectasis or pneumonia. Reviewed, Interpreted and Dictated by Elvis Moreno III, MD Transcribed by Phyllis Varma Authenticated and . [facility]
[2021-12-24 14:29] LABS: Basophils # 0.1 K/mm3 (0-0.2); Basophils % 0.8 % (0.1-2.0); Eosinophils # 0.2 K/mm3 (0.0-0.4); Eosinophils % 1.9 % (0.1-12.0); Hematocrit 36.7 % (37.0-47.0); Hemoglobin 11.8 g/dL (12.2-16.2); Lymphocytes # 1.8 K/mm3 (0.7-4.5); Lymphocytes % 17.2 % (10-50); Mean Corpuscular HGB Conc 32.3 g/dL (31.8-35.4); Mean Corpuscular Hemoglobin 30.5 pg (27.0-31.2); Mean Corpuscular Volume 94.7 fl (81-99); Mean Platelet Volume 9.5 fl (7.4-10.4); Monocytes # 0.5 K/mm3 (0.1-1.0); Monocytes % 4.7 % (1.7-9.3); Neutrophils # 7.7 K/mm3 (1.8-7.8); Neutrophils % 75.5 % (37.0-80.0); Platelet Count 177 K/mm3 (142-424); Red Blood Count 3.87 M/mm3 (4.20-5.40); Red Cell Distribution Width 13.6 % (11.5-17.5); White Blood Count 10.2 K/mm3 (4.8-10.8)
[2021-12-24 14:52] LABS: Alanine Aminotransferase 29 U/L (12-78); Albumin Level 3.8 g/dl (3.5-5.0); Albumin/Globulin Ratio 1.4 (1.1-1.8); Alkaline Phosphatase 114 U/L (38-126); Anion Gap 11.9 mEq/L (5-15); Aspartate Amino Transferase 32 U/L (14-36); Bilirubin,Total 0.5 mg/dl (0.2-1.3); Blood Urea Nitrogen 29 mg/dl (7-17); Calcium 9.4 mg/dl (8.4-10.2); Carbon Dioxide 34 mmol/L (22.0-30.0); Chloride 98 mmol/L (98-107); Estimated Glomerular Filt Rate 43 ml/min (>60); GFR (African American) 52 ML/MIN (>60); Globulin 2.7 g/dL (1.3-3.2); Glucose 121 mg/dl (74-100); Potassium 3.9 mmoL/L (3.5-5.1); Sodium 140 mmol/L (136-145); Total Protein,Serum 6.5 g/dl (6.3-8.2)
[2021-12-24 15:01] LABS: NT Pro Brain Natriuretic Pep. 297 pg/mL (0-450)
== END ==
PROVIDERS: PCP Internal Medicine Adolescent Medicine; Visit Provider Nurse Practitioner Family
DX: R06.02 Shortness of breath (principal)
CPT/HCPCS: 36415; 71046; 80053; 83880; 85025

== ENCOUNTER 2023-08-13 13:19 | Outpatient (CLI) | payer MEDICARE, SELFPAY ==
--- NOTE | 2023-08-13 13:43 | CT_ITS ---
FINAL REPORT TECHNIQUE: Postcontrast axial images through the abdomen and pelvis were performed. This study was performed with techniques to keep radiation doses as low as reasonably achievable, (ALARA). Individualized dose reduction techniques using automated exposure control or adjustment of mA and/or kV according to the patient's size were employed. CLINICAL HISTORY: INTRACTABLE NAUSEA,WEIGHT LOSS,INSOMNIA,ABD PAIN FINDINGS: Abdomen: There is mild scarring in the lung bases. The liver is normal in size and attenuation. The gallbladder is moderately distended without stones. There is no biliary ductal dilatation. The spleen is unremarkable. The adrenals are normal. The pancreas is unremarkable. There is a less than 1 cm probable cyst in the lateral right kidney. No follow-up is required. The aorta is normal in caliber. No free fluid or adenopathy is identified. No findings for mechanical bowel obstruction are identified. Pelvis: The appendix is normal. There is mild bladder wall thickening. No free fluid, free air, abscess or adenopathy is identified. IMPRESSION: Distended gallbladder without evidence of gallstones. Mild bladder wall thickening. Reviewed, Interpreted and Dictated by Elvis Moreno III, MD Transcribed by Emi Vides Authenticated and [facility]
[2023-08-13 13:55] LABS: Blood Urea Nitrogen 25 mg/dl (7-17); Estimated Glomerular Filt Rate 33 ml/min (>60); GFR (African American) 40 ML/MIN (>60)
[2023-08-13] MEDS: SODIUM CHLORIDE 0.9% 10ML SYR (RAD ONLY) 10 ML IV (14:29)
[2023-08-13] MEDS: IOPAMIDOL-370 (76%);100ML BOTTLE 75 ML IV (14:29)
== END 2023-08-13 23:59 | disposition home or self-care (01) ==
LOC: RAD 13:19
PROVIDERS: PCP Internal Medicine Adolescent Medicine; Visit Provider Internal Medicine Adolescent Medicine
DX: R11.0 Nausea (principal); R63.4 Abnormal weight loss; F51.01 Primary insomnia; R10.84 Generalized abdominal pain; Z68.23 Body mass index [BMI] 23.0-23.9, adult
CPT/HCPCS: 36415; 74177; 82565; 84520; Q9967

== ENCOUNTER 2023-08-27 09:50 | Outpatient (CLI) | payer MEDICARE, SELFPAY ==
--- NOTE | 2023-08-27 09:56 | NM_ITS ---
FINAL REPORT CLINICAL HISTORY: EPIGASTRIC PAIN,NAUSEA 10:30am 8.06 mci tc choletec 1.4 mcg cck no pain with cck COMPARISON: None FINDINGS: The patient was injected with 8.06 mCi of technetium 99m Choletec and subsequently 1.4 mcg of CCK. Images of the abdomen were obtained for one hour. There is normal distribution of radiopharmaceutical throughout the liver. Sequential images demonstrate progressive accumulation of activity within the gallbladder. There is a calculated ejection fraction of 85%, within normal limits. IMPRESSION: Normal ejection fraction. Reviewed, Interpreted and Dictated by Alex Tabares MD Transcribed by Esperanza Lemus Authenticated and [facility]
--- NOTE | 2023-08-27 09:56 | US_ITS ---
FINAL REPORT TECHNIQUE: Multiple transverse and longitudinal images CLINICAL HISTORY: NAUSEA,EPIGASTRIC PAIN FINDINGS: The gallbladder shows no wall thickening, distention or stone disease. No biliary ductal dilatation is appreciated. No fluid collections are seen. Limited portions of the right liver are unremarkable. Limited portions of the right kidney are unremarkable. IMPRESSION: 1. No evidence of cholelithiasis 2. No evidence of biliary obstruction Reviewed, Interpreted and Dictated by Alex Tabares MD Transcribed by Emi Vides Authenticated and [facility]
[2023-08-27] MEDS: SODIUM CHLORIDE 0.9% 10ML SYR (RAD ONLY) 10 ML IV (10:30)
[2023-08-27] MEDS: ISOTOPE CHOLETECH;1 DOSE (UP TO 15 MCI) IV (11:50)
[2023-08-27] MEDS: SINCALIDE 1.4 MCG in 0.9 % SODIUM CHLORIDE 50 ML 100 MCG IV (11:50)
== END 2023-08-27 23:59 | disposition home or self-care (01) ==
LOC: RAD 09:50
PROVIDERS: PCP Internal Medicine Adolescent Medicine; Visit Provider Internal Medicine Adolescent Medicine
DX: R11.0 Nausea (principal); R10.13 Epigastric pain
CPT/HCPCS: 76705; 78227; A9537; J2805

== ENCOUNTER 2023-09-22 08:41 | Emergency (ER) | payer MEDICARE, SELFPAY ==
[2023-09-22] VITALS (8 sets, daily range): BP systolic 111–136; BP diastolic 51–91; PULSE 67–77; RESP 12–20; TEMP 36.7; O2SAT 95–99; BMI 24.7; BMI 24.9
--- NOTE | 2023-09-22 08:35 | ECG_ITS ---
APPROVED REPORT Exam: Resting ECG HR:74 bpm ECG Measurements Heart Rate 74 AXES PA 140 P 53 QRSd 90 QRS 24 QT 385 T 27 QTc 412 Conclusion SINUS RHYTHM WITH OCCASIONAL SUPRAVENTRICULAR PREMATURE COMPLEXES BORDERLINE ECG UNCONFIRMED REPORT Electronically signed by : WILTON HO, 09/22/2023 09:50:38
[2023-09-22 09:00] LABS: Coronavirus 19, PCR Not Detected (NotDetected); Influenza A, PCR Not Detected (NotDetected); Influenza B, PCR Not Detected (NotDetected)
[2023-09-22 09:02] LABS: Basophils # 0.1 K/mm3 (0-0.2); Basophils % 0.9 % (0.1-2.0); Eosinophils # 0.2 K/mm3 (0.0-0.4); Eosinophils % 1.8 % (0.1-12.0); Hematocrit 33.1 % (37.0-47.0); Hemoglobin 10.7 g/dL (12.2-16.2); Lymphocytes # 2.7 K/mm3 (0.7-4.5); Lymphocytes % 24.2 % (10-50); Mean Corpuscular HGB Conc 32.3 g/dL (31.8-35.4); Mean Corpuscular Hemoglobin 29.5 pg (27.0-31.2); Mean Corpuscular Volume 91.1 fl (81-99); Mean Platelet Volume 9.3 fl (7.4-10.4); Monocytes # 0.7 K/mm3 (0.1-1.0); Monocytes % 6.8 % (1.7-9.3); Neutrophils # 7.3 K/mm3 (1.8-7.8); Neutrophils % 66.3 % (37.0-80.0); Platelet Count 200 K/mm3 (142-424); Red Blood Count 3.64 M/mm3 (4.20-5.40); Red Cell Distribution Width 14.1 % (11.5-17.5); White Blood Count 10.9 K/mm3 (4.8-10.8)
[2023-09-22 09:05] LABS: Chloride 101 mmol/L (98-107); Potassium 3.4 mmoL/L (3.5-5.1); Sodium 143 mmol/L (136-145)
[2023-09-22 09:07] LABS: Alanine Aminotransferase 14 U/L (12-78); Aspartate Amino Transferase 24 U/L (14-36); Blood Urea Nitrogen 74 mg/dl (7-17); Creatinine Clearance Estimated 33 mL/min (50-200); Estimated Glomerular Filt Rate 36 ml/min (>60); GFR (African American) 44 ML/MIN (>60)
[2023-09-22 09:08] LABS: Albumin Level 3.7 g/dl (3.5-5.0); Albumin/Globulin Ratio 1.2 (1.1-1.8); Alkaline Phosphatase 96 U/L (38-126); Anion Gap 8.4 mEq/L (5-15); Bilirubin,Total 0.3 mg/dl (0.2-1.3); Calcium 10.1 mg/dl (8.4-10.2); Carbon Dioxide 37 mmol/L (22.0-30.0); Globulin 3.2 g/dL (1.3-3.2); Glucose 117 mg/dl (74-100); Magnesium 1.7 mg/dl (1.6-2.3); Total Protein,Serum 6.9 g/dl (6.3-8.2)
--- NOTE | 2023-09-22 09:12 | XR_ITS ---
FINAL REPORT CLINICAL HISTORY: SOB COMPARISON: 12/24/2021 FINDINGS: PA and lateral views of the chest were obtained. The cardiac and mediastinal silhouettes are within normal limits. Changes of emphysema are present. There are mild increased interstitial markings, that may represent either interstitial edema or pneumonia.. There is no pleural effusion or pneumothorax. No acute osseous abnormality is identified. IMPRESSION: Changes of emphysema are present. Mild increased interstitial markings, either interstitial edema or pneumonia. Reviewed, Interpreted and Dictated by Mere Mckinney MD Transcribed by Magalis Snowden Authenticated and [facility]
--- NOTE | 2023-09-22 09:13 | HMH.EDGENADL ---
Discharge Plan Disposition Patient Disposition: Home, Self-Care Condition: Good Prescriptions Prescriptions: New amoxicillin-pot clavulanate 875-125 mg tablet 1 tab PO BID 7 Days Qty: 14 0RF azithromycin 500 mg tablet See Rx Instructions .ROUTE .COMPLEX Qty: 6 0RF Rx Instructions: For 250 mg dose pack: take 500 mg today (day 1), then 250 mg for 4 days (days 2-5) ondansetron 4 mg tablet,disintegrating 4 mg PO Q6H PRN (Reason: nausea and vomiting) 4 Days Qty: 16 0RF No Action famotidine 20 mg tablet 20 mg PO DAILY atorvastatin 40 mg tablet 40 mg PO DAILY carvedilol 25 mg tablet 25 mg PO BID furosemide 20 mg tablet 20 mg PO DAILY tramadol 50 mg tablet 50 mg PO Q4-6H PRN (Reason: Pain) aspirin 81 mg tablet,chewable 81 mg PO DAILY metolazone 2.5 mg tablet 2.5 mg PO DAILY Patient Comments: TAKE 1 TABLET 1 TIME EACH DAY eszopiclone 2 mg tablet 2 mg PO HS Patient Comments: TAKE 1 TABLET 1 TIME EACH DAY AT BEDTIME Activity Restrictions/Add. Instructions Additional Instructions/Restrictions: You have been evaluated in the ED for your complaints. You may follow-up with your PCP in the next 3 to 5 days. Please return to ED for any new or worsening symptoms. As discussed, please follow-up with your primary care provider this week for recheck on your creatinine and BNP. Please continue taking your furosemide as discussed. I have written for antibiotics to treat your pneumonia. Please take these as prescribed. I have also written for Zofran to assist with any nausea that you may have. Please keep your appointment with gastroenterology for endoscopy. Clinical Impressions Clinical Impression: Creatinine elevation, Nausea, Elevated brain natriuretic peptide (BNP) level, Generalized weakness Discharge ED Provider: Tomas Lang Adult HPI General Chief complaint: Weakness Stated complaint: weakness/SOA Time Seen by Provider: 09/22/23 09:01 Mode of Arrival: EMS Source of Information: Patient Limitations: No Limitations Description of Symptoms (Recalled from ER Triage Doc. by RN): pt presents to ED via [facility]. pts daughter reports symptoms ongoing for the past two weeks. pt has had multiple tests ran. pts daughter reports extreme nausea, weight loss, weakness. pt reports that this morning she awoke with shortness of breath after going to the bathroom. History of Present Illness HPI narrative: 83-year-old female with past medical history significant for arthritis, on tramadol, CHF, presents today for evaluation concerning generalized weakness, shortness of breath and nausea. Daughter at bedside assist with history noting that patient has lost about 34 pounds since March of this year. Her weakness has been worsening over the past few days as well as her shortness of breath. She has had nausea for the past few months however has continued to tolerate oral intake which has been decreased from previous. She denies any chest pain, vomiting, abdominal pain, dysuria, hematuria or any other associated symptoms. She has been able to take her medications appropriately. Family states that she has an appointment with Dr. Torres in GI for endoscopy to further assess why patient has been nauseated for so long. They have no further complaints at this time. Related Data Home Medications Medication Instructions Recorded Confirmed aspirin 81 mg chewable tablet 81 mg PO DAILY 12/15/17 09/22/23 carvedilol 25 mg tablet 25 mg PO BID 12/15/17 09/22/23 furosemide 20 mg tablet 20 mg PO DAILY 12/15/17 09/22/23 tramadol 50 mg tablet 50 mg PO Q4-6H PRN Pain 12/15/17 09/22/23 famotidine 20 mg tablet 20 mg PO DAILY 12/24/17 09/22/23 atorvastatin 40 mg tablet 40 mg PO DAILY 09/05/21 09/22/23 eszopiclone 2 mg tablet 2 mg PO HS 09/22/23 09/22/23 metolazone 2.5 mg tablet 2.5 mg PO DAILY 09/22/23 09/22/23 Previous Rx's Medication Instructions Recorded amoxicillin 875 mg-potassium 1 tab PO BID 7 days #14 tabs 09/22/23 clavulanate 125 mg tablet azithromycin 500 mg tablet See Rx Instructions PO .COMPLEX #6 09/22/23 tabs ondansetron 4 mg disintegrating 4 mg PO Q6H PRN nausea and 09/22/23 tablet vomiting 4 days #16 tabs Allergies Allergy/AdvReac Type Severity Reaction Status Date / Time metaxalone Allergy Nausea Verified 09/22/23 09:09 [facility] Disclaimer: The information contained in this section may have been updated after the patient was seen, as this information can be updated by other users. Social History Smoking Status: Never smoker alcohol intake: never current occupational status: retired Travel in the last 8 weeks: None ROS Obtained: Yes All systems reviewed & no additional complaints except as documented Physical Exam General General appearance: alert and in no apparent distress Head Head exam: atraumatic and normocephalic Eye Eye exam: Present normal appearance, PERRL and EOMI ENT ENT exam: Present normal oropharynx and mucous membranes moist Neck Neck exam: Present full ROM; Absent meningismus Respiratory Respiratory exam: Present other (Crackles at bases bilaterally); Absent respiratory distress, wheezes, stridor or accessory muscle use Cardiovascular Cardiovascular exam: Present normal rhythm Abdominal Exam Abdominal exam: Present soft; Absent distention, tenderness, guarding, rebound or rigidity Neurological Exam Neurological exam: Present alert, oriented X3 and CN II-XII intact; Absent motor sensory deficit Psychiatric Psychiatric exam: Present normal affect and normal mood Skin Skin exam: Present warm and dry Medical Decision Making Medical Records Medical records reviewed: Yes I reviewed the patient's medical records. Miko Inquiry Pt receiving controlled substance: No Miko was queried for this patient: No Vital Signs: 09/22/23 08:41 09/22/23 09:00 09/22/23 09:30 Temperature 98.0 F Temperature Source Oral Pulse Rate 70 67 Pulse Rate [Left Radial] 76 Respiratory Rate 15 15 16 Blood Pressure 111/53 L 136/66 Blood Pressure [Right Arm] 116/55 L Blood Pressure Mean 89 Blood Pressure Mean [Right Arm] 75 02 Sat by Pulse Oximetry 96 95 97 Oxygen Delivery Method Room Air Room Air 09/22/23 10:30 09/22/23 11:01 09/22/23 11:30 Temperature Temperature Source Pulse Rate 67 72 77 Pulse Rate [Left Radial] Respiratory Rate 13 20 16 Blood Pressure 118/58 L 134/51 L 111/91 H Blood Pressure [Right Arm] Blood Pressure Mean Blood Pressure Mean [Right Arm] 02 Sat by Pulse Oximetry 97 99 98 Oxygen Delivery Method Nasal Cannula Nasal Cannula Room Air 09/22/23 12:00 Temperature Temperature Source Pulse Rate 75 Pulse Rate [Left Radial] Respiratory Rate 12 Blood Pressure 122/61 Blood Pressure [Right Arm] Blood Pressure Mean Blood Pressure Mean [Right Arm] 02 Sat by Pulse Oximetry 95 Oxygen Delivery Method Room Air Lab Data Lab Results 09/22/23 08:47: SARS-CoV-2 (PCR) Not detected, Influenza A Untype (PCR) Not detected, Influenza Type B (PCR) Not detected 09/22/23 08:48: WBC 10.9 H, RBC 3.64 L, Hgb 10.7 L, Hct 33.1 L, MCV 91.1, MCH 29.5, MCHC 32.3, RDW 14.1, Plt Count 200, MPV 9.3, Neut % (Auto) 66.3, Lymph % (Auto) 24.2, [place] % (Auto) 6.8, Eos % (Auto) 1.8, Baso % (Auto) 0.9, Neut # (Auto) 7.3, Lymph # (Auto) 2.7, [place] # (Auto) 0.7, Eos # (Auto) 0.2, Baso # (Auto) 0.1, Sodium 143, Potassium 3.4 L, Chloride 101, Carbon Dioxide 37 H, Anion Gap 8.4, BUN 74 H, Creatinine 1.40 H, Estimated Creat Clear 33, Estimated GFR 36 L, Est GFR ( Amer) 44 L, Glucose 117 H, Calcium 10.1, Magnesium 1.7, Total Bilirubin 0.3, AST 24, ALT 14, Alkaline Phosphatase 96, Troponin I < 0.01, NT-Pro-B Natriuret Pep 471 H, Total Protein 6.9, Albumin 3.7, Globulin 3.2, Albumin/Globulin Ratio 1.2 09/22/23 10:58: Urine Color Yellow, Urine Appearance Clear, Urine pH 6.0, Ur Specific [place] 1.010, Urine Protein Negative, Urine Glucose (UA) Negative, Urine Ketones Negative, Urine Blood Negative, Urine Nitrate Negative, Urine Bilirubin Negative, Urine Urobilinogen 0.2, Ur Leukocyte Esterase Negative, Urine RBC None, Urine WBC Occasional, Ur Squamous Epith Cells 5-10, Urine Bacteria Trace 09/22/23 11:30: Troponin I < 0.01 09/22/23 08:48 09/22/23 08:48 Orders (Tests/Meds): ED MEDICATIONS Discontinued Medications Generic Name Dose Route Start Last Admin Trade Name Freq PRN Reason Stop Dose Admin Lactated Ringer's 500 mls @ 999 mls/hr 09/22/23 10:54 09/22/23 11:00 Lactated Ringer's 500ml IV 09/22/23 11:24 999 mls/hr .Q31M ONE Administration ORDERS Category Date Time Status CXR 2 view (NOT portable) [XR chest 2V] Stat Exams 09/22/23 09:12 Completed Complete Blood Count Auto Diff Stat Lab 09/22/23 08:48 Completed Comprehensive Metabolic Panel Stat Lab 09/22/23 08:48 Completed Magnesium Stat Lab 09/22/23 08:48 Completed NT Pro Brain Natriuretic Pep. Stat Lab 09/22/23 08:48 Completed Rapid PCR Covid and Flu A/B Stat Lab 09/22/23 08:47 Completed Troponin I Q3H Lab 09/22/23 11:30 Completed Troponin I Q3H Lab 09/22/23 15:00 Ordered Troponin I Stat Lab 09/22/23 08:48 Completed UA [Urinalysis and Microscopic] Stat Lab 09/22/23 10:58 Completed HEART Score History (anamnesis): Slightly suspicious ECG: Normal Age: >65 years Risk factors: No known risk factors Troponin: </= normal limit HEART Score: 2 Medical Decision Narrative: 83-year-old female with past medical history significant for arthritis, on tramadol, CHF, presents today for evaluation concerning generalized weakness, shortness of breath and nausea. Daughter at bedside assist with history noting that patient has lost about 34 pounds since March of this year. Her weakness has been worsening over the past few days as well as her shortness of breath. She has had nausea for the past few months however has continued to tolerate oral intake which has been decreased from previous. She denies any chest pain, vomiting, abdominal pain, dysuria, hematuria or any other associated symptoms. She has been able to take her medications appropriately. Of note she does report a cough with green phlegm which she states she has had for some time. On assessment she was hemodynamically stable and in no acute distress. Afebrile. Crackles auscultated bases bilaterally. Abdomen soft nondistended and nontender palpation. Oropharynx is clear with moist mucous membranes. Abdomen soft nondistended and nontender palpation. No significant peripheral edema noted. Other physical exam vitals unremarkable. Differential diagnoses include but limited to ACS, dysrhythmia, electrolyte disturbance, viral syndrome, pneumonia, pleural effusion, CHF exacerbation, UTI, gastroenteritis, among others. EKG was interpreted by me with normal sinus rhythm with rate of 74 bpm. No ischemic changes. Labs today remarkable for a WBC of 10.9. Stable anemia with hemoglobin of 10.7. Potassium 3.4. Creatinine 1.4 which appears to be around patient's baseline. Initial troponin less than 0.01. Second troponin 0.01. BNP mildly elevated at 471. Patient does not appear to be fluid overloaded. No signs of UTI on urinalysis. Negative COVID/influenza swabs. Chest x-ray showed increased interstitial markings which could be interstitial edema or pneumonia. On reassessment she remains hemodynamically stable and in no acute distress. She is more well-appearing and active. States that she is not short of breath. I discussed ED workup and results as well as current plan to discharge with antibiotics to treat her symptoms. She will keep her appointment with gastroenterology for her endoscopy. I also instructed patient to follow-up with her primary care provider to reassess her creatinine level and BNP. She will continue to take her Lasix as prescribed. Provided her with strict return ED precautions. She was subsequently discharged hemodynamically stable and in no acute distress Critical Care Critical Care Time Critical Care Time: No
[2023-09-22 09:17] LABS: NT Pro Brain Natriuretic Pep. 471 pg/mL (0-450)
[2023-09-22 09:29] LABS: Troponin I < 0.01 ng/ml (0.00-0.034)
[2023-09-22] MEDS: RINGERS SOLUTION,LACTATED 500 ML 999 ML IV (11:00)
[2023-09-22 11:04] LABS: Microscopic, Urine URINE MICROSCOPIC (MICROSCOPIC)
--- NOTE | 2023-09-22 11:04 | PC.NURSE ---
ROUNDED ON PT, WARM BLANKET PROVIDED. FAMILY AT BEDSIDE. CALL LIGHT WITHIN REACH
[2023-09-22 11:06] LABS: Appearance,Urine CLEAR (Clear); Bilirubin,Urine Negative (Negative); Blood, Urine Negative (Negative); Color,Urine YELLOW (Yellow); Glucose,Urine (UA) Negative (Negative); Ketones,Urine Negative (Negative); Leukocyte Esterase,Urine Negative (Negative); Nitrate,Urine Negative (Negative); Protein,Urine Negative (Negative); Urobilinogen,Urine 0.2 EU/dl (0.2)
[2023-09-22 11:23] LABS: Bacteria,Urine Trace /lpf; WBC,Urine Occasional #/hpf (0-3)
[2023-09-22 12:01] LABS: Troponin I < 0.01 ng/ml (0.00-0.034)
== END 2023-09-22 12:40 | disposition home or self-care (01) ==
PROVIDERS: Emergency Provider Emergency Medicine; PCP Internal Medicine Adolescent Medicine
DX: R06.02 Shortness of breath (principal); R06.89 Other abnormalities of breathing; R79.89 Other specified abnormal findings of blood chemistry; R94.4 Abnormal results of kidney function studies; R53.1 Weakness; R11.0 Nausea
CPT/HCPCS: 71046; 80053; 81001; 83735; 83880; 84484; 85025; 87636; 93005; 99284; J7120

== ENCOUNTER 2023-09-28 20:51 | Emergency (ER) | payer MEDICARE, SELFPAY ==
--- NOTE | 2023-09-28 20:38 | PC.NURSE ---
Report from [facility] for pt dx with pna here on . called ems for c/o increased shortness of air and chills. patient is RA at baseline with saturations 97%-98%. Placed patient on 2Lfor comfort and patient stated she felt better with the extra air. NAD otherwise. VSS. a/o x3
--- NOTE | 2023-09-28 20:49 | ECG_ITS ---
APPROVED REPORT Exam: Resting ECG HR:66 bpm ECG Measurements Heart Rate 66 AXES MA 171 P 73 QRSd 87 QRS 37 QT 420 T 40 QTc 433 Conclusion SINUS RHYTHM NORMAL ECG UNCONFIRMED REPORT Electronically signed by : WILLIS KHAN, 09/29/2023 00:35:32
[2023-09-28 20:51] VITALS: BP 134/62; PULSE 68; RESP 13; TEMP 36.7; O2SAT 100; BMI 24.7
--- NOTE | 2023-09-28 21:13 | PC.NURSE ---
rounded on pt. pt says shes feeling a little better. pt and family deny any concerns or questions for me at this time.
[2023-09-28 21:30] VITALS: BP 113/56; PULSE 67; RESP 17; O2SAT 100
--- NOTE | 2023-09-28 21:40 | PC.NURSE ---
Molly Nino RN rounded on pt. warm blankets provided and family nor pt had any concerns or questions at this time.
[2023-09-28 22:00] VITALS: BP 119/58; PULSE 66; RESP 16; O2SAT 100
--- NOTE | 2023-09-28 22:19 | PC.NURSE ---
Assisted pt to restroom and sent up a UA on pt. pt is back in bed with BP cuff on and pulse ox, no other needs at this time.
[2023-09-28 22:30] VITALS: BP 133/55; PULSE 67; RESP 14; O2SAT 95
--- NOTE | 2023-09-28 22:32 | XR_ITS ---
PROCEDURE INFORMATION: Exam: XR Chest Exam date and time: 09/28/2023 10:40 PM Age: 83 years old Clinical indication: Cough and shortness of breath; Patient HX: SOB, recent diagnosis of pneumonia TECHNIQUE: Imaging protocol: Radiologic exam of the chest. Views: 2 views. Total images: 2 COMPARISON: CR XR CHEST 2V 09/22/2023 9:07 AM FINDINGS: Lungs: Emphysema/COPD. No airspace consolidation, vascular congestion, or pulmonary edema. Chronic mild accentuation of pulmonary interstitium and bronchovascular markings, unchanged. Pleural spaces: Unremarkable. No pleural effusion. No pneumothorax. Heart/Mediastinum: Unremarkable. No cardiomegaly. No mediastinal widening or hilar enlargement. Bones/joints: Osteopenia. Moderate degenerative changes thoracic spine. Mild degenerative changes bilateral shoulders and AC joints. Soft tissues: Breast attenuation artifact. IMPRESSION: 1. No radiographically acute cardiopulmonary process. 2. Stable chronic findings. 3. No focal pneumonia.
--- NOTE | 2023-09-28 22:36 | ED_ITS ---
Discharge Plan Disposition Patient Disposition: Home, Self-Care Prescriptions Prescriptions: No Action famotidine 20 mg tablet 20 mg PO DAILY atorvastatin 40 mg tablet 40 mg PO DAILY carvedilol 25 mg tablet 25 mg PO BID furosemide 20 mg tablet 20 mg PO DAILY tramadol 50 mg tablet 50 mg PO Q4-6H PRN (Reason: Pain) aspirin 81 mg tablet,chewable 81 mg PO DAILY metolazone 2.5 mg tablet 2.5 mg PO DAILY Patient Comments: TAKE 1 TABLET 1 TIME EACH DAY eszopiclone 2 mg tablet 2 mg PO HS Patient Comments: TAKE 1 TABLET 1 TIME EACH DAY AT BEDTIME amoxicillin-pot clavulanate 875-125 mg tablet 1 tab PO BID 7 Days Qty: 14 0RF azithromycin 500 mg tablet See Rx Instructions .ROUTE .COMPLEX Qty: 6 0RF Rx Instructions: For 250 mg dose pack: take 500 mg today (day 1), then 250 mg for 4 days (days 2-5) ondansetron 4 mg tablet,disintegrating 4 mg PO Q6H PRN (Reason: nausea and vomiting) 4 Days Qty: 16 0RF Referrals Follow up/Referrals: Elvin Dolan MD [Primary Care Provider] - See instructions Activity Restrictions/Add. Instructions Additional Instructions/Restrictions: Please follow-up with your primary care provider. Please return to the emergency department if you develop any new or worsening symptoms or become concerned for your health. Clinical Impressions Clinical Impression: Dyspnea Discharge ED Provider: Cayetano Hills HPI <Branden Yepez MD - Last Filed: 09/28/23 23:36> General Chief Complaint: Shortness of Breath/Dyspnea Stated Complaint: SOA, chills, pna dx on Time Seen by Provider: 09/28/23 21:43 Mode of Arrival: EMS Source of Information: Patient and EMS Limitations: No Limitations Description of Symptoms (Recalled from ER Triage Doc. by RN): Pt presents to ED via EMS for SOB. Pt states she was dx with pneumonia on Thursday 09/21 and was feeling better. However, today she just can't seem to catch her breath. O2 sat is 100%. Pt is A&O*4 at this time and family is bedside. History of Present Illness HPI narrative: Patient is an 83-year-old female with past medical history of recently diagnosed pneumonia, CHF on diuretics, chronic weight loss is currently under investigation by Dr. Dolan who presents emergency department for evaluation of shortness of breath. Patient was diagnosed with pneumonia and was discharged on antibiotics which she has been compliant. However she has felt as if she is short of breath that persist causing her to present here for continued evaluation. No falls. No chest pain. No abdominal pain. She normally takes her water pills and doubles up on them when she has swelling of her legs however her legs are not currently swollen. Related Data Home Medications Medication Instructions Recorded Confirmed aspirin 81 mg chewable tablet 81 mg PO DAILY 12/15/17 09/24/23 carvedilol 25 mg tablet 25 mg PO BID 12/15/17 09/24/23 furosemide 20 mg tablet 20 mg PO DAILY 12/15/17 09/24/23 tramadol 50 mg tablet 50 mg PO Q4-6H PRN Pain 12/15/17 09/24/23 famotidine 20 mg tablet 20 mg PO DAILY 12/24/17 09/24/23 atorvastatin 40 mg tablet 40 mg PO DAILY 09/05/21 09/24/23 eszopiclone 2 mg tablet 2 mg PO HS 09/22/23 09/24/23 metolazone 2.5 mg tablet 2.5 mg PO DAILY 09/22/23 09/24/23 Previous Rx's Medication Instructions Recorded amoxicillin 875 mg-potassium 1 tab PO BID 7 days #14 tabs 09/22/23 clavulanate 125 mg tablet azithromycin 500 mg tablet See Rx Instructions PO .COMPLEX #6 09/22/23 tabs ondansetron 4 mg disintegrating 4 mg PO Q6H PRN nausea and 09/22/23 tablet vomiting 4 days #16 tabs Allergies Allergy/AdvReac Type Severity Reaction Status Date / Time metaxalone Allergy Nausea Verified 09/22/23 09:09 [facility] <Branden Yepez MD - Last Filed: 09/28/23 23:36> [facility] Disclaimer: The information contained in this section may have been updated after the patient was seen, as this information can be updated by other users. Medical History (Updated 09/29/23 @ 00:46 by Cayetano Hills MD) Pneumonia Hyperlipidemia Congestive heart failure Family History (Updated 09/24/23 @ 11:28 by Tiffany Ortega RN) Other No significant family history Social History (Updated 09/24/23 @ 11:28 by Tiffany Ortega RN) Smoking Status: Unknown if ever smoked alcohol intake: never current occupational status: retired Travel in the last 8 weeks: None <Branden Yepez MD - Last Filed: 09/28/23 23:36> ROS Obtained: Yes Systems reviewed as appropriate & no additional complaints except as documented Physical Exam <Branden Yepez MD - Last Filed: 09/28/23 23:36> General General appearance: alert and in no apparent distress Head Head exam: atraumatic and normocephalic Eye Eye exam: Present PERRL ENT ENT exam: Present mucous membranes moist Neck Neck exam: Present normal inspection Chest Chest inspection: Present normal inspection and symmetric chest wall rise Respiratory Respiratory exam: Present normal lung sounds bilaterally; Absent respiratory distress Cardiovascular Cardiovascular exam: Present regular rate and normal rhythm Abdominal Exam Abdominal exam: Present soft; Absent tenderness Extremities Exam Extremities exam: Present normal inspection and other (No pitting edema BLE.) Neurological Exam Neurological exam: Present alert Psychiatric Psychiatric exam: Present normal affect Skin Skin exam: Present warm and dry HEART Score <Branden Yepez MD - Last Filed: 09/28/23 23:36> HEART Score HEART Score assessment performed?: Yes History (anamnesis): Slightly suspicious ECG: Normal Age: >65 years Risk factors: 1-2 risk factors Troponin: </= normal limit HEART Score: 3 <Cayetano Hills MD - Last Filed: 09/29/23 01:10> HEART Score HEART Score: 3 Critical Care <Branden Yepez MD - Last Filed: 09/28/23 23:36> Critical Care Time Critical Care Time: No Medical Decision Making <Branden Yepez MD - Last Filed: 09/28/23 23:36> Miko Inquiry Pt receiving controlled substance: No Vital Signs Vital Signs: 09/28/23 20:51 09/28/23 21:30 09/28/23 22:00 Temperature 98.1 F Temperature Source Oral Pulse Rate 67 66 Pulse Rate [Left] 68 Respiratory Rate 13 17 16 Blood Pressure 113/56 L 119/58 L Blood Pressure [Right Arm] 134/62 Blood Pressure Mean [Right Arm] 86 02 Sat by Pulse Oximetry 100 100 100 Oxygen Delivery Method Room Air Nasal Cannula Nasal Cannula Oxygen Flow Rate (LPM) 3 09/28/23 22:30 09/28/23 23:00 09/29/23 00:50 Temperature 97.9 F Temperature Source Oral Pulse Rate 67 68 74 Pulse Rate [Left] Respiratory Rate 14 11 L 18 Blood Pressure 133/55 L 119/51 L 120/51 L Blood Pressure [Right Arm] Blood Pressure Mean [Right Arm] 02 Sat by Pulse Oximetry 95 96 Oxygen Delivery Method Nasal Cannula Nasal Cannula Room Air Oxygen Flow Rate (LPM) Lab Data Labs: Lab Results 09/28/23 20:53: WBC 8.0, RBC 3.69 L, Hgb 10.9 L, Hct 34.3 L, MCV 92.8, MCH 29.5, MCHC 31.8, RDW 13.8, Plt Count 203, MPV 10.3, Neut % (Auto) 43.2, Lymph % (Auto) 46.3, [place] % (Auto) 6.7, Eos % (Auto) 2.8, Baso % (Auto) 1.1, Neut # (Auto) 3.4, Lymph # (Auto) 3.7, [place] # (Auto) 0.5, Eos # (Auto) 0.2, Baso # (Auto) 0.1, D- Dimer 0.97 H, Sodium 139, Potassium 4.0, Chloride 98, Carbon Dioxide 36 H, Anion Gap 9.0, BUN 54 H, Creatinine 1.60 H, Estimated Creat Clear 32, Estimated GFR 31 L, Est GFR ( Amer) 37 L, Glucose 112 H, Calcium 9.8, Total Bilirubin 0.5, AST 31, ALT 13, Alkaline Phosphatase 106, Troponin I < 0.01, NT-Pro-B Natriuret Pep 506 H, Total Protein 6.7, Albumin 3.7, Globulin 3.0, Albumin/Globulin Ratio 1.2 09/28/23 22:31: VBG pH 7.41, VBG pCO2 49.2, VBG pO2 30.8, VBG HCO3 30.3 H, VBG Total CO2 31.9 H, VBG O2 Saturation 58.8, VBG Base Excess 5.7 H, VBG Lactic Acid 1.2 09/28/23 20:53 09/28/23 20:53 Response Orders (Tests/Meds): ED MEDICATIONS Discontinued Medications Generic Name Dose Route Start Last Admin Trade Name Freq PRN Reason Stop Dose Admin Iopamidol 75 ml 09/29/23 00:00 09/29/23 00:01 Iopamidol-370 (76%);100ml Bottle IV 09/29/23 00:01 75 ml ONCE ONE Administration Sodium Chloride 50 ml 09/29/23 00:00 09/29/23 00:01 0.9 % Sodium Chloride 50 Ml Vial IV 09/29/23 00:01 50 ml ONCE ONE Administration Sodium Chloride 10 ml 09/29/23 00:00 09/29/23 00:01 Sodium Chloride 0.9% 10ml Syr (Rad Only) IV 09/29/23 00:01 10 ml ONCE ONE Administration ORDERS Category Date Time Status CT angio chest PE protocol Stat Cat Scan 09/28/23 23:30 Completed CXR 2 view (NOT portable) [XR chest 2V] Stat Exams 09/28/23 22:32 Completed BNP [NT Pro Brain Natriuretic Pep.] Stat Lab 09/28/23 20:53 Completed CBC w/Auto Diff [Complete Blood Count Auto Diff] Stat Lab 09/28/23 20:53 Completed CMP [Comprehensive Metabolic Panel] Stat Lab 09/28/23 20:53 Completed D-Dimer Stat Lab 09/28/23 20:53 Completed Trop I [Troponin I] Stat Lab 09/28/23 20:53 Completed Troponin I Q3H Lab 09/29/23 01:45 Ordered Troponin I Q3H Lab 09/29/23 04:45 Ordered VBG [Venous Blood Gas] Stat RT 09/28/23 22:31 Completed ECG Data Tracing #1: ECG Narrative: Independently interpreted by me rate is 66, rhythm is regular, axis is normal, no ST elevation in anatomical contiguous leads, QTc 433. MDM Narrative Medical Decision Narrative: In summary patient is an 83-year-old female with past medical history described above presents emergency department for evaluation of shortness of breath in setting of recently diagnosed mono. Patient is hemodynamically stable nontoxic- appearing upon arrival, afebrile. I suspect the patient has chronic dyspnea at baseline and pneumonia has worsened her respiratory reserve causing her to feel dyspneic. Differential diagnosis includes worsening pneumonia, atypical ACS, worsening CHF, pulmonary embolism, among others. Workup be conducted with hematologic labs, chest x-ray two-view, EKG, troponin, D-dimer. Patient appears largely euvolemic so diuresis will be deferred initially. She is saturating in the high 90s on room air. Initial workup reviewed by me, hematologic labs have no leukocytosis, stable anemia, elevated D-dimer for which CT pulmonary embolism will be ordered. VBG compensated, stable CKD, no critical electrolyte abnormality. Initial troponin undetectably low. Chest x-ray roughly stable from prior however it does appear that she may have a retrocardiac pneumonia on my informal read. Formal read pending at time of transfer of care to the oncoming physician, Dr. Hills. <Cayetano Hills MD - Last Filed: 09/29/23 01:10> Vital Signs Vital Signs: 09/28/23 20:51 09/28/23 21:30 09/28/23 22:00 Temperature 98.1 F Temperature Source Oral Pulse Rate 67 66 Pulse Rate [Left] 68 Respiratory Rate 13 17 16 Blood Pressure 113/56 L 119/58 L Blood Pressure [Right Arm] 134/62 Blood Pressure Mean [Right Arm] 86 02 Sat by Pulse Oximetry 100 100 100 Oxygen Delivery Method Room Air Nasal Cannula Nasal Cannula Oxygen Flow Rate (LPM) 3 09/28/23 22:30 09/28/23 23:00 09/29/23 00:50 Temperature 97.9 F Temperature Source Oral Pulse Rate 67 68 74 Pulse Rate [Left] Respiratory Rate 14 11 L 18 Blood Pressure 133/55 L 119/51 L 120/51 L Blood Pressure [Right Arm] Blood Pressure Mean [Right Arm] 02 Sat by Pulse Oximetry 95 96 Oxygen Delivery Method Nasal Cannula Nasal Cannula Room Air Oxygen Flow Rate (LPM) Lab Data Labs: Lab Results 09/28/23 20:53: WBC 8.0, RBC 3.69 L, Hgb 10.9 L, Hct 34.3 L, MCV 92.8, MCH 29.5, MCHC 31.8, RDW 13.8, Plt Count 203, MPV 10.3, Neut % (Auto) 43.2, Lymph % (Auto) 46.3, [place] % (Auto) 6.7, Eos % (Auto) 2.8, Baso % (Auto) 1.1, Neut # (Auto) 3.4, Lymph # (Auto) 3.7, [place] # (Auto) 0.5, Eos # (Auto) 0.2, Baso # (Auto) 0.1, D- Dimer 0.97 H, Sodium 139, Potassium 4.0, Chloride 98, Carbon Dioxide 36 H, Anion Gap 9.0, BUN 54 H, Creatinine 1.60 H, Estimated Creat Clear 32, Estimated GFR 31 L, Est GFR ( Amer) 37 L, Glucose 112 H, Calcium 9.8, Total Bilirubin 0.5, AST 31, ALT 13, Alkaline Phosphatase 106, Troponin I < 0.01, NT-Pro-B Natriuret Pep 506 H, Total Protein 6.7, Albumin 3.7, Globulin 3.0, Albumin/Globulin Ratio 1.2 09/28/23 22:31: VBG pH 7.41, VBG pCO2 49.2, VBG pO2 30.8, VBG HCO3 30.3 H, VBG Total CO2 31.9 H, VBG O2 Saturation 58.8, VBG Base Excess 5.7 H, VBG Lactic Acid 1.2 Response Orders (Tests/Meds): ED MEDICATIONS Discontinued Medications Generic Name Dose Route Start Last Admin Trade Name Glennq PRN Reason Stop Dose Admin Iopamidol 75 ml 09/29/23 00:00 09/29/23 00:01 Iopamidol-370 (76%);100ml Bottle IV 09/29/23 00:01 75 ml ONCE ONE Administration Sodium Chloride 50 ml 09/29/23 00:00 09/29/23 00:01 0.9 % Sodium Chloride 50 Ml Vial IV 09/29/23 00:01 50 ml ONCE ONE Administration Sodium Chloride 10 ml 09/29/23 00:00 09/29/23 00:01 Sodium Chloride 0.9% 10ml Syr (Rad Only) IV 09/29/23 00:01 10 ml ONCE ONE Administration ORDERS Category Date Time Status CT angio chest PE protocol Stat Cat Scan 09/28/23 23:30 Completed CXR 2 view (NOT portable) [XR chest 2V] Stat Exams 09/28/23 22:32 Completed BNP [NT Pro Brain Natriuretic Pep.] Stat Lab 09/28/23 20:53 Completed CBC w/Auto Diff [Complete Blood Count Auto Diff] Stat Lab 09/28/23 20:53 Completed CMP [Comprehensive Metabolic Panel] Stat Lab 09/28/23 20:53 Completed D-Dimer Stat Lab 09/28/23 20:53 Completed Trop I [Troponin I] Stat Lab 09/28/23 20:53 Completed Troponin I Q3H Lab 09/29/23 01:45 Ordered Troponin I Q3H Lab 09/29/23 04:45 Ordered VBG [Venous Blood Gas] Stat RT 09/28/23 22:31 Completed MDM Narrative Medical Decision Narrative: In summary patient is an 83-year-old female with past medical history described above presents emergency department for evaluation of shortness of breath in setting of recently diagnosed mono. Patient is hemodynamically stable nontoxic- appearing upon arrival, afebrile. I suspect the patient has chronic dyspnea at baseline and pneumonia has worsened her respiratory reserve causing her to feel dyspneic. Differential diagnosis includes worsening pneumonia, atypical ACS, worsening CHF, pulmonary embolism, among others. Workup be conducted with hematologic labs, chest x-ray two-view, EKG, troponin, D-dimer. Patient appears largely euvolemic so diuresis will be deferred initially. She is saturating in the high 90s on room air. Initial workup reviewed by me, hematologic labs have no leukocytosis, stable anemia, elevated D-dimer for which CT pulmonary embolism will be ordered. VBG compensated, stable CKD, no critical electrolyte abnormality. Initial troponin undetectably low. Chest x-ray roughly stable from prior however it does appear that she may have a retrocardiac pneumonia on my informal read. Formal read pending at time of transfer of care to the oncoming physician, Dr. Hills. Reinier BRITO: I assumed care of the patient at the time of handoff from the prior provider. On reassessment patient reports symptomatic improvement. CT imaging independently reviewed by me and shows no evidence of pulmonary emboli or focal airspace consolidation. Does show some chronic fibrosis and some mild inflammation, but nothing that looks like it would require antibiotic therapy or urgent follow-up. These findings were discussed with patient. She reports that she has PCP follow-up scheduled in a few days. Patient discharged in stable condition.
[2023-09-28 22:44] LABS: Alanine Aminotransferase 13 U/L (12-78); Albumin Level 3.7 g/dl (3.5-5.0); Albumin/Globulin Ratio 1.2 (1.1-1.8); Alkaline Phosphatase 106 U/L (38-126); Aspartate Amino Transferase 31 U/L (14-36); Bilirubin,Total 0.5 mg/dl (0.2-1.3); Blood Urea Nitrogen 54 mg/dl (7-17); Calcium 9.8 mg/dl (8.4-10.2); Carbon Dioxide 36 mmol/L (22.0-30.0); Chloride 98 mmol/L (98-107); Creatinine Clearance Estimated 32 mL/min (50-200); Estimated Glomerular Filt Rate 31 ml/min (>60); GFR (African American) 37 ML/MIN (>60); Glucose 112 mg/dl (74-100); Sodium 139 mmol/L (136-145); Total Protein,Serum 6.7 g/dl (6.3-8.2)
[2023-09-28 22:46] LABS: Basophils # 0.1 K/mm3 (0-0.2); Basophils % 1.1 % (0.1-2.0); Eosinophils # 0.2 K/mm3 (0.0-0.4); Eosinophils % 2.8 % (0.1-12.0); Hematocrit 34.3 % (37.0-47.0); Hemoglobin 10.9 g/dL (12.2-16.2); Lymphocytes # 3.7 K/mm3 (0.7-4.5); Lymphocytes % 46.3 % (10-50); Mean Corpuscular HGB Conc 31.8 g/dL (31.8-35.4); Mean Corpuscular Hemoglobin 29.5 pg (27.0-31.2); Mean Corpuscular Volume 92.8 fl (81-99); Mean Platelet Volume 10.3 fl (7.4-10.4); Monocytes # 0.5 K/mm3 (0.1-1.0); Monocytes % 6.7 % (1.7-9.3); Neutrophils # 3.4 K/mm3 (1.8-7.8); Neutrophils % 43.2 % (37.0-80.0); Platelet Count 203 K/mm3 (142-424); Red Blood Count 3.69 M/mm3 (4.20-5.40); Red Cell Distribution Width 13.8 % (11.5-17.5)
--- NOTE | 2023-09-28 22:46 | PC.NURSE ---
rounded on pt, pt and family had no questions nor concerns at this time.
[2023-09-28 22:49] LABS: D-Dimer 0.97 ug/mL (0.0-0.5)
[2023-09-28 22:57] LABS: NT Pro Brain Natriuretic Pep. 506 pg/mL (0-450)
[2023-09-28 22:59] LABS: Troponin I < 0.01 ng/ml (0.00-0.034)
[2023-09-28 23:00] VITALS: BP 119/51; PULSE 68; RESP 11; O2SAT 96
[2023-09-28 23:11] LABS: Lactate Venous 1.2 mmol/L (0.4-2.0); VBG Base Excess 5.7 mmol/L (-2.4-2.3); VBG HCO3 30.3 mmol/L (23-30); VBG Oxygen Saturation 58.8 % (50-70); VBG PCO2 49.2 mmol/L (35-51); VBG PH 7.41 mmol/L (7.31-7.41); VBG PO2 30.8 mmol/L (28-40); VBG Total CO2 31.9 mmol/L (23-27)
--- NOTE | 2023-09-28 23:30 | CT_ITS ---
PROCEDURE INFORMATION: Exam: CTA Chest With Contrast Exam date and time: 09/28/2023 11:53 PM Age: 83 years old Clinical indication: Cough and dyspnea and shortness of breath; Additional info: Dyspnea, elevated dimer TECHNIQUE: Imaging protocol: Computed tomographic angiography of the chest with contrast. Exam focused on the arteries. 3D rendering (Not supervised by radiologist): MIP and/or 3D reconstructed images were created by the technologist. Total images: 795 Radiation optimization: All CT scans at this facility use at least one of these dose optimization techniques: automated exposure control; mA and/or kV adjustment per patient size (includes targeted exams where dose is matched to clinical indication); or iterative reconstruction. Contrast material: ISOVUE 370; Contrast volume: 70 ml; Contrast route: INTRAVENOUS (IV); COMPARISON: CR XR CHEST 2V 09/28/2023 10:40 PM FINDINGS: Pulmonary arteries: Adequate contrast opacification of the pulmonary arteries. No acute pulmonary emboli. Aorta: Mildly atherosclerotic thoracic aorta without aneurysm or dissection. Thyroid: Mildly atrophic thyroid gland. Lungs: The trachea and main bronchi are patent. Diffuse peripheral coarsening of the pulmonary interstitial markings, scattered throughout both lungs, resembling chronic fibrosis. Generalized mild bronchial wall thickening. No bronchial impactions. No focal airspace consolidation. Mild emphysematous changes. There scattered small areas of peripheral tree-in-bud opacification bilaterally compatible with distal small airway inflammation. Pleural spaces: Unremarkable. No pneumothorax. No pleural effusion. Heart: Normal heart size. No pericardial effusion. Coronary arteries: Moderate coronary artery calcifications. Lymph nodes: Calcified mediastinal and hilar lymph nodes compatible with remote granulomatous disease. There are few borderline to mildly enlarged paratracheal, prevascular, and right hilar lymph nodes up to 10 mm in short axis. Kidneys and ureters: High density exophytic 10 mm right renal cortical hemorrhagic cyst. Intraperitoneal space: No acute process in the upper abdomen. Bones/joints: Osteopenia. Moderate degenerative changes cervicothoracic spine with mild increased thoracic kyphosis. Soft tissues: Unremarkable. IMPRESSION: 1. No acute pulmonary emboli. 2. Mildly coarsened peripheral interstitial markings resembling chronic fibrosis. 3. Scattered peripheral tree-in-bud opacifications bilaterally, implying acute distal small airway inflammation. 4. Bronchial wall thickening. 5. No airspace consolidation. 6. Borderline to mildly enlarged mediastinal and right hilar lymph nodes, likely granulomas given presence of additional densely calcified lymph nodes 7. Additional chronic and incidental findings. COMMENTS: Consistent with the [employer]'s Incidental Findings Committee white paper (J Am Blossom Radiol 2018): Any incidental renal lesion less than 1 cm or classified as too small to characterize, or any incidental cystic renal lesion characterized as simple-appearing, is likely benign. No follow-up imaging is recommended for these lesions per consensus recommendations based on imaging criteria.
[2023-09-29] MEDS: IOPAMIDOL-370 (76%);100ML BOTTLE 75 ML IV (00:01)
[2023-09-29] MEDS: 0.9 % SODIUM CHLORIDE 50 ML VIAL IV (00:01)
[2023-09-29] MEDS: SODIUM CHLORIDE 0.9% 10ML SYR (RAD ONLY) 10 ML IV (00:01)
[2023-09-29 00:50] VITALS: BP 120/51; PULSE 74; RESP 18; TEMP 36.6; O2SAT 98
== END 2023-09-29 00:56 | disposition home or self-care (01) ==
PROVIDERS: Emergency Medicine; Emergency Provider Emergency Medicine; PCP Internal Medicine Adolescent Medicine
DX: R06.02 Shortness of breath (principal); I11.0 Hypertensive heart disease with heart failure; I50.9 Heart failure, unspecified; E78.5 Hyperlipidemia, unspecified
CPT/HCPCS: 71046; 71275; 80053; 82803; 83880; 84484; 85025; 85378; 93005; 99285; Q9967

== ENCOUNTER → 2023-10-03 09:35 | Day surgery (SDC) | payer MEDICARE, SELFPAY ==
[2023-10-01 15:03] VITALS: BMI 50.9
[2023-10-03 09:59] VITALS: BP 121/65; PULSE 72; RESP 18; TEMP 36.7; O2SAT 99
--- NOTE | 2023-10-03 10:26 | P.PCN_ITS ---
Procedure: Date: 10/03/23 Patient Date of :: 1940 Procedure Performed:: Esophagogastroduodenoscopy with biopsies Indications:: Patient presents for upper endoscopy. She is an 83-year-old female from [place], [place] referred by Dr. Elvin Dolan for upper endoscopy. She has had symptoms mainly of nausea and significant early satiety. She states that she stays sick to her stomach at all times with nausea. She has lost weight, approximately 30 lbs. This is ongoing for about 6 months or so. Her symptoms of nausea not necessarily related to eating however and she states nausea even without that. She has no pain. She had been taken off tramadol as it may have been a causative factor but this had no change in her symptoms. She had a CT scan of the abdomen and pelvis on 08/13/2023 which revealed distended gallbladder but otherwise unremarkable. Gallbladder ultrasound on 08/27/2023 was unremarkable. HIDA scan at that time was normal with an ejection fraction of 85%. Plan was to proceed with EGD with biopsies to evaluate her symptoms of nausea and early satiety. . Performing Provider:: Elvis Torres MD Referring Provider:: Elvin Dolan MD . Sedation:: MAC sedation . Procedure:: Patient history was obtained and appropriate physical examination was performed. Patient's medications and allergies were reviewed. Informed consent was obtained after explaining the benefits, alternatives, and risks of the procedure including, but not limited to, bleeding, perforation, missed lesions, and adverse reaction to anesthesia medications. Patient was transported to endoscopy procedure room. Patient was connected to monitoring devices. Throughout the procedure the patient's blood pressure, pulse, and oxygen saturations were monitored continuously. Patient identification and planned procedure were verified by the staff. Patient was positioned in lateral decubitus position. Olympus endoscope was inserted via the oropharynx. Esophagus was cannulated. Overall esophagus appeared relatively unremarkable. There was some transient spasm in the distal esophagus. Gastroesophageal junction was encountered at approximately 37 cm. Stomach was cannulated and insufflated. Retroflexion revealed no evidence of any appreciable hiatal hernia. There is some diffuse mild gastropathy/gastritis. Pylorus was traversed. There were findings of mild duodenitis within the bulb. Biopsies were obtained of the distal duodenum and within the duodenal bulb. Biopsies were obtained in the prepyloric location as there appeared to be some prominent mucosa but this was likely a normal variant. Several gastric biopsies were obtained. Biopsy was obtained at the gastroesophageal junction and a couple of distal esophageal biopsies were obtained. . Findings:: Gastroesophageal junction at 37 cm Diffuse mild gastropathy/gastritis Mild duodenitis within the bulb . Recommendations:: Follow-up on the biopsy results. No evidence of any etiology for her nausea grossly on endoscopic evaluation. Complications:: None immediately apparent Estimated blood obtained (mL): 2 Colonoscopy Component Colonoscopy Component Was a colonoscopy performed during today's procedure?: No
--- NOTE | 2023-10-03 10:32 | P.PNANES_ITS ---
[facility] Disclaimer: The information contained in this section may have been updated after the patient was seen, as this information can be updated by other users. Medical History Pneumonia Hyperlipidemia Congestive heart failure Surgical History (Updated 10/03/23 @ 09:56 by Demarco Mcnamara RN) No history of previous surgery Family History Other No significant family history Social History (Updated 10/03/23 @ 09:57 by Demarco Mcnamara RN) Smoking Status: Unknown if ever smoked alcohol intake: never substance use type: denies use current occupational status: retired Travel in the last 8 weeks: None [facility] Anesthesia Checklist Patient Identification Patient Identification: Arm Band Structural Data Admitted From: Home Planned Operative Procedure/s: EGD Consent for Planned Operative Procedure(s) Verified: Yes Verified Documents: Surgical Consent and History and Physical NPO Status Verified Time NPO: 00:00 Additional verifications Anesthesia Reactions: No Airway Assessment Mallampati Score:: Class II C-Spine Mobility Assessed: Yes TMJ Mobility Assessed: Yes Dentition: Good Dentition Neurological Assessment Level of Consciousness: Awake, Alert and Appropriate Anesthesia Plan Anesthesia Risk discussed: Yes Anesthesia Plan: Verified ASA Class: III Anesthesia Type: MAC
[2023-10-03 11:07] VITALS: BP 112/60; PULSE 74; RESP 16; O2SAT 99
[2023-10-03 11:17] VITALS: BP 123/61; PULSE 76; RESP 16; O2SAT 98
[2023-10-03 11:27] VITALS: BP 134/68; PULSE 76; RESP 16; O2SAT 98
[2023-10-03 11:37] VITALS: BP 137/66; PULSE 74; RESP 16; O2SAT 99
== END | disposition home or self-care (01) ==
PROVIDERS: PCP Internal Medicine Adolescent Medicine; Visit Provider Surgery
PROC: 0DJ08ZZ Inspection of Upper Intestinal Tract, Via Natural or Artificial Opening Endoscopic (ICD-10-PCS; CPT 43235; principal; 2023-10-03 10:30)
DX: R11.0 Nausea (principal); R68.81 Early satiety; K29.70 Gastritis, unspecified, without bleeding; K31.9 Disease of stomach and duodenum, unspecified; K29.80 Duodenitis without bleeding
CPT/HCPCS: 43239

== ENCOUNTER 2023-11-20 13:01 | Outpatient (POV) | payer MEDICARE, SELFPAY ==
--- NOTE | 2023-11-20 13:13 | EXP.PAIN.OV ---
HPI Data of Consult Patient: new to practice Consult date: 11/20/23 Requesting Physician: Shaunna Leslie APRN Primary Care Provider: Elvin Dolan MD Consult Narrative Reason for consult: Low back pain, bilateral knee pain History of present illness: Ms. More is a 83 year old female who presents today as a new patient. She is a referral from Dr. Dolan's office. Today she rates her pain a 9 out of 10. Patient states she has chronic pain throughout her low back and bilateral knees. Patient states this is been going on for years and progressively worsening. Patient states that she does believe it is just wearing tighter and more arthritis. Patient does describe it as an aching, throbbing sensation that is fairly constant and does interfere with her ability perform activities of daily living such as cooking and cleaning. Patient has tried [id number] medications such as Tylenol and tramadol along with heat and ice and topicals such as Voltaren with minimal relief. Patient has had physical therapy with no additional change. Patient does try and do at home stretching exercise for longer than 12 weeks with no additional improvement. Patient does state that she is really limited on her quality of life due to not being able to move around easier. Patient does state that she has been having a lot of stomach issues earlier in the year and lost about 30 pounds. Patient does deny any prior surgical intervention for her back or knees. Patient does state that she did prior get injections in an orthopedic doctor where she got both cortisone and gel injections. She states that the cortisone worked better and that she would typically get about 50% relief at least lasting about 2 months. Patient states it has been approximately 1 year or longer since having any injections. She is interested in any options we may be able to provide.Patient is currently prescribed tramadol from her PCP. Her Miko has been reviewed and is appropriate. CC: Shaunna Leslie APRN [facility] Disclaimer: The information contained in this section may have been updated after the patient was seen, as this information can be updated by other users. Medical History (Updated 11/20/23 @ 13:47 by Shaunna Leslie APRN) Pneumonia Hyperlipidemia Congestive heart failure Surgical History No history of previous surgery Family History Other No significant family history Social History (Updated 11/20/23 @ 13:30 by Clari Batres RN) Smoking Status: Unknown if ever smoked alcohol intake: never substance use type: denies use current occupational status: retired Travel in the last 8 weeks: None Review of Systems Review of Systems Review of systems:: pertinent systems reviewed and negative unless documented below Review of systems (narrative): Review of Systems: General: No recent weight changes, no fever, no sleep disturbances Respiratory: No cough, no shortness of air, no recurring pulmonary infections Cardiovascular/peripheral vascular: No chest pain, no palpitations, no edema, no shortness of breath Gastrointestinal: No new onset incontinence, normal bowel movements reported Genitourinary: No new onset incontinence Musculoskeletal: Low back pain, bilateral knee pain Psychiatric: [Normal mood/affect] Neurological: [Denies weakness in extremities], [denies balance issues] Meds Home Medications and Allergies Home Medications ?Medication ?Instructions ?Recorded ?Confirmed ?Type aspirin 81 mg chewable tablet 81 mg PO DAILY 12/15/17 11/20/23 History carvedilol 25 mg tablet 25 mg PO BID 12/15/17 11/20/23 History furosemide 20 mg tablet 20 mg PO DAILY 12/15/17 11/20/23 History tramadol 50 mg tablet 50 mg PO Q4-6H PRN Pain 12/15/17 11/20/23 History famotidine 20 mg tablet 20 mg PO DAILY 12/24/17 11/20/23 History atorvastatin 40 mg tablet 40 mg PO DAILY 09/05/21 11/20/23 History eszopiclone 2 mg tablet 2 mg PO HS 09/22/23 11/20/23 History metolazone 2.5 mg tablet 2.5 mg PO DAILY 09/22/23 11/20/23 History ondansetron 4 mg disintegrating 4 mg PO Q6H PRN nausea and 09/22/23 11/20/23 Rx tablet vomiting 4 days #16 tabs New Prescriptions to Start Prescriptions: Allergies Allergy/AdvReac Type Severity Reaction Status Date / Time metaxalone Allergy Nausea Verified 10/03/23 09:57 Objective Narrative: Physical Exam: General: Alert and oriented x3, no acute distress, pleasant and cooperative Lungs: Respirations even and unlabored, symmetrical chest expansion Eyes: PERRL Musculoskeletal: Flexion and extension of bilateral knees somewhat guarded secondary to pain, [antalgic gait noted] Neurological: Speech clear, no gross sensory deficit Additional findings Additional findings: FINDINGS: Mild lumbar curvature convex left. Multilevel degenerative disc disease from L1-S1 most progressed at L3-L4 and L5-S1. Endplate osteophytes are present from L1-S1. No acute fracture or dislocation. No lytic or blastic change. There is mild facet arthritic changes L5-S1. The SI joints have an unremarkable appearance. There is a moderate amount of retained colonic feces. Mild osteoarthritic changes are present in the hips IMPRESSION: Multilevel lumbar spondylosis as described above. Dictated by: Sid Greene MD 07/13/2020 14:10 Sid Greene MD in OV 07/13/2020 14:10 Assessment and Plan *Assessment and plan (1) Degenerative disc disease, lumbar: Status: Acute Category: Medical Code(s): M51.36 - Other intervertebral disc degeneration, lumbar region (2) Bilateral knee pain: Status: Acute Qualifiers: Chronicity: chronic Qualified Code(s): M25.561 - Pain in right knee; M25.562 - Pain in left knee; G89.29 - Other chronic pain Category: Medical Code(s): M25.561 - Pain in right knee; M25.562 - Pain in left knee Plan Patient is experiencing significant pain throughout her low back and bilateral knees. Patient does state that the knees are more bothersome than her back. She did have limited range of motion of her bilateral knees and point tenderness with palpation in and around the infrapatellar area. I did discuss with patient that she may benefit from intra-articular knee injections. Risk and benefits were discussed with patient and she would like to proceed forward with this plan of care. Patient has tried and failed conservative therapy including continued at home stretching exercise for longer than 12 weeks. I will also order the patient a compounded cream. Patient will be scheduled for bilateral knee intra-articular injections. Patient has been instructed to contact the clinic with any concerns before the next appointment. Dr. Cleary has reviewed this note and agrees with this plan of care. This note was dictated using voice recognition software and make contain errors or omissions. All injections are used with Lidocaine or Bupivacaine and Depo Medrol.
[2023-11-20 13:29] VITALS: BP 140/58; PULSE 68; RESP 18; O2SAT 98; BMI 23.4
== END 2023-11-20 23:59 | disposition home or self-care (01) ==
LOC: SC.PAIN 13:02
PROVIDERS: PCP Internal Medicine Adolescent Medicine; Visit Provider Nurse Practitioner Family
DX: M51.36 Other intervertebral disc degeneration, lumbar region (principal); M25.561 Pain in right knee; M25.562 Pain in left knee; G89.29 Other chronic pain; Z73.89 Other problems related to life management difficulty
CPT/HCPCS: 99202; G0463

== ENCOUNTER 2023-12-02 11:54 | Day surgery (SDC) | payer MEDICARE, SELFPAY ==
[2023-12-02 12:04] VITALS: BP 115/41; PULSE 78; RESP 16; TEMP 36.7; O2SAT 98; BMI 23.2
[2023-12-02] MEDS: methylPREDNISolone ACETATE 80MG/ML VIAL 80 MG (12:18)
[2023-12-02] MEDS: LIDOCAINE 1% 5ML PF VIAL 5 ML (12:19)
[2023-12-02] MEDS: BUPIVACAINE 0.25% 10ML INJ 25 MG IJ (12:19)
[2023-12-02 12:21] VITALS: BP 116/52; PULSE 69; RESP 18; O2SAT 98
--- NOTE | 2023-12-02 13:08 | EXP.PAIN.PRO ---
Procedure Date: 12/02/23 Time: 12:00 Anesthesiologist:: Jim Araya CRNA Complications:: None Pre-procedure Diagnosis:: DJD bilateral knee. Chronic bilateral knee pain. Post-procedure Diagnosis:: Same. Indications for Procedure:: Patient is a very pleasant 83-year-old female comes our clinic today for bilateral intra-articular knee injections of cortisone and local anesthetic. Patient reports bilateral knee pain is constant, dull, aching. She rates the pain 9/10. Patient reports having difficulty with ambulation. Difficulty standing. Difficulty with flexion and extension. Procedure Details:: Informed consent was obtained risk and benefits of the procedure were explained to the patient. Patient was taken the procedure room both knees were prepped using ChloraPrep. A 25-gauge needle was used to inject 10 mL bupivacaine 0.25% and Depo-Medrol 40 mg into each knee. We did a total of 80 mg Depo-Medrol for both knees. The patient tolerated the procedure well with no complications. Plan and Disposition:: Patient was discharged without incident.
== END 2023-12-02 12:21 | disposition home or self-care (01) ==
PROVIDERS: PCP Internal Medicine Adolescent Medicine; Visit Provider Nurse Anesthetist, Certified Registered
DX: M17.0 Bilateral primary osteoarthritis of knee (principal); M25.561 Pain in right knee; M25.562 Pain in left knee; G89.29 Other chronic pain
CPT/HCPCS: 20610; J1010

== ENCOUNTER 2023-12-29 15:37 | Outpatient (POV) | payer MEDICARE, SELFPAY ==
--- NOTE | 2023-12-29 15:40 | EXP.PAIN.SOA ---
[facility] Disclaimer: The information contained in this section may have been updated after the patient was seen, as this information can be updated by other users. Medical History Pneumonia Hyperlipidemia Congestive heart failure Surgical History No history of previous surgery Family History Other No significant family history Social History Smoking Status: Unknown if ever smoked alcohol intake: never substance use type: denies use current occupational status: other Travel in the last 8 weeks: None PM Subjective & Objective Subjective Subjective:: patient is a pleasant 83-year-old female who presents today for follow-up of bilateral intra-articular knee injection on 12/02/2023. Today she rates her pain a 8out of 10. She denies any new trauma or injury. She does state that she had at least 90% improvement if not more following these injections and it lasted about 2 weeks. Patient does state that it has started to slowly come back and she is stating she is almost back to her baseline today. Patient does describe her pain as an aching, throbbing sensation that is worse with increased activity. She states that getting up and walking causes significant disability and interferes with her ability to perform activities of daily living such as cooking and cleaning. Patient is currently managed with tramadol from her PCP. She is prescribed compounded cream from our office. She does state that this cream has done great and that she has just recently ordered her second bottle. Her Miko has been reviewed and is appropriate. Review of Systems: General: No recent weight changes, no fever, no sleep disturbances Respiratory: No cough, no shortness of air, no recurring pulmonary infections Cardiovascular/peripheral vascular: No chest pain, no palpitations, no edema, no shortness of breath Gastrointestinal: No new onset incontinence, normal bowel movements reported Genitourinary: No new onset incontinence Musculoskeletal: Knee pain Psychiatric: [Normal mood/affect] Neurological: [Denies weakness in extremities], [denies balance issues] Pain at rest (0-10 scale): 8 Objective Objective:: Physical Exam: General: Alert and oriented x3, no acute distress, pleasant and cooperative Lungs: Respirations even and unlabored, symmetrical chest expansion Eyes: PERRL Musculoskeletal: Flexion and extension of bilateral knees somewhat guarded secondary to pain, [antalgic gait noted] Neurological: Speech clear, no gross sensory deficit Has patient had previous pain injection?: Yes Percent improvement in pain since last injection: 90% Conservative treatment options previously tried: Home exercise plan Length of treatment: Longer than 12 weeks Meds Home Medications and Allergies Home Medications ?Medication ?Instructions ?Recorded ?Confirmed ?Type aspirin 81 mg chewable tablet 81 mg PO DAILY 12/15/17 12/02/23 History carvedilol 25 mg tablet 25 mg PO BID 12/15/17 12/02/23 History furosemide 20 mg tablet 20 mg PO DAILY 12/15/17 12/02/23 History tramadol 50 mg tablet 50 mg PO Q4-6H PRN Pain 12/15/17 12/02/23 History famotidine 20 mg tablet 20 mg PO DAILY 12/24/17 12/02/23 History atorvastatin 40 mg tablet 40 mg PO DAILY 09/05/21 12/02/23 History eszopiclone 2 mg tablet 2 mg PO HS 09/22/23 12/02/23 History metolazone 2.5 mg tablet 2.5 mg PO DAILY 09/22/23 12/02/23 History ondansetron 4 mg disintegrating 4 mg PO Q6H PRN nausea and 09/22/23 12/02/23 Rx tablet vomiting 4 days #16 tabs New Prescriptions to Start Prescriptions: Allergies Allergy/AdvReac Type Severity Reaction Status Date / Time metaxalone Allergy Nausea Verified 12/02/23 12:05 Assessment and Plan *Assessment and plan (1) Bilateral knee pain: Status: Acute Qualifiers: Chronicity: chronic Qualified Code(s): M25.561 - Pain in right knee; M25.562 - Pain in left knee; G89.29 - Other chronic pain Category: Medical Code(s): M25.561 - Pain in right knee; M25.562 - Pain in left knee (2) Degenerative disc disease, lumbar: Status: Acute Category: Medical Code(s): M51.36 - Other intervertebral disc degeneration, lumbar region Plan Patient did have significant relief following her bilateral intra-articular knee injections however she is back to her baseline today. Patient did have limited range of motion of her bilateral knees with pain with palpation. I did discuss with the patient that we can always see about trying a infrapatellar nerve block bilaterally. Risk and benefits were discussed with patient and she would like to proceed forward with this plan of care. Patient has tried and failed conservative therapy including continued at home stretching exercise for longer than 12 weeks. Patient will be scheduled for bilateral infrapatellar nerve blocks. Patient has been instructed to contact the clinic with any concerns before the next appointment. Dr. Cleary has reviewed this note and agrees with this plan of care. This note was dictated using voice recognition software and make contain errors or omissions. All injections are used with Lidocaine or Bupivacaine and Depo Medrol.
[2023-12-29 15:47] VITALS: BP 103/54; PULSE 73; RESP 16; O2SAT 96; BMI 23.7
== END 2023-12-29 23:59 | disposition home or self-care (01) ==
LOC: SC.PAIN 15:37
PROVIDERS: PCP Internal Medicine Adolescent Medicine; Visit Provider Nurse Practitioner Family
DX: M25.561 Pain in right knee (principal); M25.562 Pain in left knee; G89.29 Other chronic pain; Z73.89 Other problems related to life management difficulty; M51.369 Other intervertebral disc degeneration, lumbar region without mention of lumbar back pain or lower extremity pain
CPT/HCPCS: 99212; G0463

== ENCOUNTER 2024-01-13 13:06 | Day surgery (SDC) | payer MEDICARE, SELFPAY ==
[2024-01-13 13:12] VITALS: BP 128/64; PULSE 80; RESP 16; O2SAT 100; BMI 23.0
--- NOTE | 2024-01-13 13:26 | EXP.PAIN.PRO ---
Procedure Date: 01/13/24 Time: 13:20 Anesthesiologist:: Jim Araya CRNA Complications:: None Pre-procedure Diagnosis:: DJD bilateral knee. Chronic bilateral knee pain. Post-procedure Diagnosis:: Same. Indications for Procedure:: Patient is a very pleasant 83-year-old female comes our clinic today for bilateral infrapatellar nerve blocks. Patient describes bilateral chronic knee pain is constant, dull, aching. Patient has difficulty with ambulation. Difficulty with flexion and extension. She rates her pain 7/10. Procedure Details:: Details of the procedure explained to the patient. The patient taken procedure room placed in the sitting position. The area over the bilateral knees was cleansed using chlorhexidine as a cleansing solution. Using a 25-gauge inch and half needle the right infrapatellar nerve was accessed with ease. After negative aspiration 5 cc of 1% lidocaine +5 cc of 0.25% Marcaine and 40 mg of Depo-Medrol was injected. The same procedure was carried out over the left infrapatellar nerve. Patient tolerated procedure without difficulty. No complications. Plan and Disposition:: Patient was discharged without incident.
[2024-01-13] MEDS: methylPREDNISolone ACETATE 80MG/ML VIAL 80 MG (13:32)
[2024-01-13] MEDS: LIDOCAINE 1% 5ML PF VIAL 5 ML (13:33)
[2024-01-13] MEDS: BUPIVACAINE 0.25% 10ML INJ 25 MG IJ (13:33)
[2024-01-13 13:40] VITALS: BP 119/50; PULSE 74; RESP 16; O2SAT 97
== END 2024-01-13 13:40 | disposition home or self-care (01) ==
PROVIDERS: PCP Internal Medicine Adolescent Medicine; Visit Provider Nurse Anesthetist, Certified Registered
DX: M17.0 Bilateral primary osteoarthritis of knee (principal); M25.561 Pain in right knee; M25.562 Pain in left knee; G89.29 Other chronic pain
CPT/HCPCS: 64450; J1010

== ENCOUNTER 2024-01-26 13:50 | Outpatient (POV) | payer MEDICARE, SELFPAY ==
--- OUTSIDE RECORDS SUMMARY | 2024-01-26 13:52 | XMS_ITS | Encounter Summary ---
Author Organization [facility] Address [address] [place] [address] Care Team Providers Care Supervisor Yard Name Role Phone Elvin Dolan MD Primary Care Provider [phone] Reason for Referral * Diagnostic Medical (Routine) - Closed Specialty Diagnoses / Procedures Referred By Contac t Referred To Contact Diagnoses Abnormal stress test Procedures Cardiac Catheterization/Vascular Study Ifeanyi Dillon MD [address] [place] [address] Phone: tel: fax: Referral ID Status Reason Start Date Expiration Date Visits Re quested Visits Authorized [id number] Closed 09/01/2018 09/01/2019 1 1 Reason for Visit * Auth/Cert Specialty Diagnoses / Procedures Referred By Contavni prabhakar Referred To Contact Diagnoses Abnormal stress test +STRESS Procedures [place] CATH PLMT L HRT & ARTS W/NJX & ANGIO IMG S&I Left Heart Cath Referral ID Status Reason Start Date Expiration Date Visits Re quested Visits Authorized [id number] 1 1 Encounter Details Date Type Department Care Team (Late st Contact Info) Description 09/04/2018 8:10 AM EDT - 09/04/2018 3:35 PM EDT Hospital Encounter [facility] [address] [place] [id number] Ifeanyi Dillon MD [address] [place] [address] Abnormal stress test Discharge Disposition: Home or Self Care Social History Tobacco Use Types Packs/Day Years Used Date Smoking Tobacco: Never Smokeless Tobacco: Never Alcohol Use Standard Drinks/Week Comments Not Asked 0 (1 standard drink = 0.6 oz pure alcohol) ocassionally drinks a glass of wine AUDIT-C Answer Date Recorded Frequency of Alcohol Consumption Never 09/05/2018 Average Number of Drinks Not on file 019 Frequency of Binge Drinking Not on file 08/09 Comments Unknown Sex and Gender Information Value Date Recorded Sex Assigned at Not on file Legal Sex Female 4:29 PM EDT Gender Identity Not on file Sexual Orientation Not on file documented as of this encounter Last Filed Vital Signs Vital Sign Reading Time Taken Comments Blood Pressure 131/59 09/04/2018 3:07 PM EDT POST AMBULATION BP Pulse 57 09/04/2018 3:00 PM EDT Temperature 37 ??C (98.6 ??F) 09/04/2018 8:4 5 AM EDT Respiratory Rate 18 09/04/2018 11:3 3 AM EDT Oxygen Saturation 98% 09/04/2018 3:0 0 PM EDT Inhaled Oxygen Concentration - - Weight 92.5 kg (203 lb 14.8 oz) 09/04/2018 8:45 AM EDT Height 172.7 cm (5' 8 ) 09/04/2018 8:45 AM EDT Body Mass Index 31.01 09/04/2018 8:45 AM EDT documented in this encounter Discharge Instructions * Attachments The following attachments cannot be sent through Care Everywhere. * Angina Pectoris (Malian) * Moderate Conscious Sedation Adult Care After (Malian) * Coronary Angiogram ([place]alian) * Radial Site Care (Malian) documented in this encounter Medications at Time of Discharge acetaminophen (TYLENOL) 650 MG 8 hr tablet Take 1,300 mg by mouth Every 12 (Twelve) Hours. allopurinol (ZYLOPRIM) 100 MG tablet Take 100 mg by mouth Daily. aspirin 81 MG EC tablet Take 81 mg by mouth Every Night. carvedilol (COREG) 25 MG tablet Take 25 mg by mouth 2 (Two) Times a Day With Meals. famotidine (PEPCID) 20 MG tablet Take 20 mg by mouth 2 (Two) Times a Day. Melatonin [address] 10 mg under the tongue Every Night. traMADol (ULTRAM) 50 MG tablet Take 50 mg by mouth Every 12 (Twelve) Hours. vilazodone (VIIBRYD) 20 MG tablet tablet Take 20 mg by mouth Daily. documented as of this encounter H&P Notes * Ifeanyi Dillon MD - 09/04/2018 8:58 AM EDT [facility] Cardiology Consult Note [facility] Patient Identification: Vanda More [id number] y.o. 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 Granados History of Present Illness: Ms. More is a 78 y/o female with pmhx of CHF, CKD and HTN who Presents today for LH plus/minusCBI. She is a patient of Dr. Granados and see on 08/27/18 for complaints of chest pain. Chest Pain described as tightness and heaviness with exertion. A/w MONROE. Does not radiate. No other associated data.. She had a nuclear stress test which was abnormal- suspicious for anterior ischemia but limited s/t GI artifact. She therefore was set up for LHC plus/minus CBI. She has no new complaints today. Past History: Past Medical History: Diagnosis Date ??? Anxiety ??? CHF (congestive heart failure) ([facility]) ??? Chronic kidney disease ??? GERD (gastroesophageal reflux disease) ??? Hypertension History reviewed. No pertinent surgical history. Allergies Allergen Reactions ??? Spironolactone Nausea And Vomiting Social History Socioeconomic History ??? Marital status: Spouse name: Not on file ??? Number of children: Not on file ??? Years of education: Not on file ??? Highest education level: Not on file Tobacco Use ??? Smoking status: Never Smoker ??? Smokeless tobacco: Never Used Substance and Sexual Activity ??? Alcohol use: No Frequency: Never ??? Drug use: No ??? Sexual activity: Defer Family History Problem Relation Age of Onset ??? Heart failure Mother ??? Arrhythmia Father Medications: Medications Prior to Admission Medication Sig Dispense Refill Last Dose ??? acetaminophen (TYLENOL) 650 MG 8 hr tablet Take 1,300 mg by mouth Every 12 (Twelve) Hours. 09/03/2018 ??? allopurinol (ZYLOPRIM) 100 MG tablet Take 100 mg by mouth Daily. 09/04/2018 at 0600 ??? aspirin 81 MG EC tablet Take 81 mg by mouth Every Night. 09/03/2018 ??? carvedilol (COREG) 25 MG tablet Take 25 mg by mouth 2 (Two) Times a Day With Meals. 09/04/2018 at 0600 ??? famotidine (PEPCID) 20 MG tablet Take 20 mg by mouth 2 (Two) Times a Day. 09/04/2018 at 0600 ??? Melatonin [address] 10 mg under the tongue Every Night. 09/03/2018 ??? traMADol (ULTRAM) 50 MG tablet Take 50 mg by mouth Every 12 (Twelve) Hours. 09/04/2018 at 0600 ??? vilazodone (VIIBRYD) 20 MG tablet tablet Take 20 mg by mouth Daily. 09/04/2018 at 0600 Current medications: Current IV drips: No current facility-administered medications for this encounter. Review of Systems: Constitutional no fever, no weight loss Skin no rash Otolaryngeal no difficulty swallowing Cardiovascular See HPI Pulmonary no cough, no sputum production Gastrointestinal no constipation, no diarrhea Genitourinary no dysuria, no hematuria Hematologic no easy bruisability, no abnormal bleeding Musculoskeletal no muscle pain Neurologic no dizziness, no falls Physical exam: BP 133/61 (BP Location: Right arm, Patient Position: Lying) Comment: 137/74 L arm Pulse 66 Temp98.6 ??F (37 ??C) (Temporal) Resp 18 Ht 172.7 cm (68 ) Wt 92.5 kg (203 lb 14.8 oz) SpO2 97% BMI 31.01 kg/m?? Body mass index is 31.01 kg/m??. Oxygen saturation SpO2 Min: 97 % Max: 97 % General Appearance: ?? well developed ?? well nourished HENT: ?? oropharynx moist ?? lips not cyanotic Neck: ?? thyroid not enlarged ?? supple Respiratory: ?? no respiratory distress ?? normal breath sounds ?? no rales Cardiovascular: ?? no jugular venous distention ?? regular rhythm ?? apical impulse normal ?? S1 normal, S2 normal ?? no S3, no S4 ?? no murmur ?? no rub, no thrill ?? carotid pulses normal; no bruit ?? pedal pulses normal ?? lower extremity edema: none ?? Left radial modified allens test- acceptable. Gastrointestinal: ?? bowel sounds normal ?? non-tender ?? no hepatomegaly, no splenomegaly Musculoskeletal: ?? no clubbing of fingers. ?? normocephalic, head atraumatic Skin: ?? warm, dry Psychiatric: ?? judgement and insight appropriate ?? normal mood and affect Cardiographics: Telemetry: (personally reviewed) NSR Lab Review: Invalid input(s): PLATELETCT Invalid input(s): POTASSIUM CrCl cannot be calculated (No order found.). No results found for: CHOL, CHLPL, TRIG, HDL, LDL, LDLDIRECT No results found for: TSH No results found for: HGBA1C No results found for: DIGOXIN No results found for: DDIMERQUANT Imaging: All pertinent imaging studies were personally reviewed. Assessment and Recommendations: 1. Progressive functional class III angina, unstable angina. - Patient reports substernal chest tightness, worsened with exertion and A/w MONROE. - Nuclear stress test with possible anterior ischemia but difficult exam s/t GI artifact. - Patient presents today for C plus/minus CBI. The risks, benefits, and alternatives of the procedure have been reviewed and the patient wishes to proceed. 2. CKD - creatinine 1.6 on 08/27/18 - diuretics held 48 hours - repeat creatinine pending - Will receive IVFs/hydration protocol. 3. HTN Continue home regimen. Electronically signed by Donna Traylor APRN, 09/04/18, 8:59 AM. documented in this encounter Plan of Treatment Not on file documented as of this encounter Procedures Procedure Name Priority Date/Time Associated Diagnosis Comments CARDIAC CATHETERIZATION Routine 09/05/19 11:32 AM EDT Abnormal stress test HEMOGLOBIN A1C STAT 09/04/2018 8:54 AM EDT LIPID PANEL STAT 09/04/2018 8:54 AM EDT COMPREHENSIVE METABOLIC PANEL STAT 09/04/2018 8:54 AM EDT SCANNED - TELEMETRY 09/04/2018 SCANNED - CARDIOLOGY 09/04/2018 documented in this encounter Results * LEFT HEART CATH (09/04/2018 11:32 AM EDT) Anatomical Region Laterality Modality X-Ray Angiograph y Impressions 09/04/2018 11:40 AM EDT 1. ??20-30% first diagonal stenosis, otherwise normal coronary arteries 2. ??Normal left ventricular function RECOMMENDATIONS: Continue primary prevention. Angiographic Findings: left coronary dominance ?? LM: Normal ?? LAD: Large vessel with one large first diagonal branch. ??In the proximal diagonal branch there is some 20-30% plaque only. 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 ??No atherosclerosis seen in the LAD. ?? LCX: Large dominant vessel giving rise to a OM1 left posterior lateral and a small left PDA. ??No angiographic atherosclerosis ?? RCA: Small nondominant vessel without angiographic atherosclerosis LV: LVEF 60% Mitral regurgitation: None Hemodynamic Findings: Ao pressure: 120/68 mmHg LVEDP: 14 mmHg Complications: There are no signs of early complications Contrast: 60 mL Isovue 370 Narrative 09/04/2018 11:40 AM EDT Clinical History: Progressive functional class III angina Access Site: Left radial Procedure narrative: Left heart catheterization, ventriculography and subsequent coronary arteriography performed via the left radial artery using standard 6 Danish catheters. ??No complications. ??Hemostasis using a radial band. us Ifeanyi Dillon MD CV CARDIAC CATH ORDERABLES Fin al Result * (ABNORMAL) Comprehensive Metabolic Panel (09/04/2018 8:54 AM EDT) Glucose 99 65 - 99 mg/dL 09/04/2018 10:01 AM EDT [facility] BUN 22 8 - 23 mg/dL 09/04/2018 10:01 AM EDT [facility] Creatinine 1.41(H) 0.57 - 1.00 mg/dL 09/04/2018 10:01 AM [facility] Sodium 143 136 - 145 mmol/L 09/04/2018 10:01 AM [facility] Potassium 4.3 3.5 - 5.2 mmol/L 09/04/2018 10:01 AM [facility] Chloride 105 98 - 107 mmol/L 09/04/2018 10:01 AM [facility] CO2 25.0 22.0 - 29.0 mmol/L 09/04/2018 10:01 AM [facility] Calcium 9.3 8.6 - 10.5 mg/dL 09/04/2018 10:01 AM [facility] Total Protein 6.3 6.0 - 8.5 g/dL 09/04/2018 10:01 AM [facility] Albumin 3.70 3.50 - 5.20 g/dL 09/04/2018 10:01 AM [facility] ALT (SGPT) 13 1 - 33 U/L 09/04/2018 10:01 AM [facility] AST (SGOT) 20 1 - 32 U/L 09/04/2018 10:01 AM [facility] Alkaline Phosphatase 108 39 - 117 U/L 09/04/2018 10:01 AM [facility] Total Bilirubin 0.4 0.2 - 1.2 mg/dL 09/04/2018 10:01 AM [facility] eGFR Non Amer 36(L) >60 mL/min/1.7 3 09/04/2018 10:01 AM [facility] Globulin 2.6 gm/dL 09/04/2018 10:01 AM [facility] A/G Ratio 1.4 g/dL 09/04/2018 10:01 AM [facility] BUN/Creatinine Ratio 15.6 7.0 - 25.0 09/04/2018 10:01 AM [facility] Anion Gap 13.0 5.0 - 15.0 mmol/L 09/04/2018 10:01 AM EDT [facility] Blood Line / Unknown 09/04/2018 8: 54 AM EDT 09/04/2018 9:42 AM EDT [facility] - 09/04/2018 10:01 AM EDT GFR Normal >60 Chronic Kidney Disease <60 Kidney Failure <15 Ifeanyi Dillon MD LAB BLOOD ORDERABLES Final Res ult Performing Organization Address [facility] de Phone Number [facility]
[address] [place] [address], * Hemoglobin A1c (09/04/2018 8:54 AM EDT) Pathologist [facility] Hemoglobin A1C 5.30 4.80 - 5.60 % 09/04/2018 11:16 AM EDT [facility] Blood Line / Unknown 09/04/2018 8: 54 AM EDT 09/04/2018 9:19 AM EDT [facility] - 09/04/2018 11:16 AM EDT Hemoglobin A1C Ranges: Increased Risk for Diabetes ??5.7% to 6.4% Diabetes ? >= 6.5% Diabetic Goal ?< 7.0% Alexa Denise APRN LAB BLOOD ORDERABLES Final Result Performing Organization Address [facility] Co de Phone Number [facility]
[address] [place] [address], * (ABNORMAL) Lipid Panel (09/04/2018 8:54 AM EDT) Pathologist [facility] Total Cholesterol 178 0 - 200 mg/dL 09/04/2018 9:39 AM EDT [facility] Triglycerides 84 0 - 150 mg/dL 09/04/2018 9:39 AM EDT [facility] HDL Cholesterol 63(H) 40 - 60 mg/dL 09/04/2018 9:39 AM EDT [facility] LDL Cholesterol 98 0 - 100 mg/dL 09/04/2018 9:39 AM EDT [facility] VLDL Cholesterol 16.8 mg/dL 09/05/19 19 9:39 AM EDT [facility] LDL/HDL Ratio 1.56 09/04/2018 9:39 AM EDT [facility] Blood Line / Unknown 09/04/2018 8: 54 AM EDT 09/04/2018 9:19 AM EDT Narrative [facility] - 09/04/2018 9:39 AM EDT Cholesterol Reference Ranges (U.S. Department of Health and Human Services ATP III Classifications) Desirable ?<200 mg/dL Borderline High ?200-239 mg/dL High Risk ?>240 mg/dL Triglyceride Reference Ranges (U.S. Department of Health and Human Services ATP III Classifications) Normal ? <150 mg/dL Borderline High ??150-199 mg/dL High ? 200-499 mg/dL Very High ?>500 mg/dL HDL Reference Ranges (U.S. Department of Health and Human Services ATP III Classifcations) Low ? <40 mg/dl (major risk factor for CHD) High ?>60 mg/dl ('negative' risk factor for CHD) LDL Reference Ranges (U.S. Department of Health and Human Services ATP III Classifcations) Optimal ?<100 mg/dL Near Optimal ? 100-129 mg/dL Borderline High ??130-159 mg/dL High ? 160-189 mg/dL Very High ?>189 mg/dL Alexa Denise APRN LAB BLOOD ORDERABLES Final Result [facility]
[address] [place] [address], * SCANNED - CARDIOLOGY (09/04/2018) Anatomical Region Laterality Modality Other [facility] CV CARDIAC SERVICES ORDERABLE S Final Result * SCANNED - TELEMETRY (09/04/2018) Anatomical Region Laterality Modality Other [facility] ECG ORDERABLES Final Result documented in this encounter Visit Diagnoses Diagnosis Abnormal stress test- Primary Other nonspecific abnormal cardiovascular system function study Abnormal stress test Other nonspecific abnormal cardiovascular system function study documented in this encounter Admitting Diagnoses Diagnosis Abnormal stress test Other nonspecific abnormal cardiovascular system function study documented in this encounter Administered Medications Inactive Administered Medications - up to 3 most recent administrations Medication Order MAR Action Action Date Dose Rate Site aspirin tablet 325 mg 325 mg, Oral, Once, On Fri09/04/18 at 0906, For 1 dose, Do not exceed 4 grams of aspirin in a 24 hr period. If given for pain, use the following pain scale: Mild Pain = Pain Score of 1-3, CPOT 1-2 Moderate Pain = Pain Score of 4-6, CPOT 3-4 Severe Pain = Pain Score of 7-10, CPOT 5-8 Given 09/04/2018 9:25 AM EDT 325 mg documented in this encounter Active and Recently Administered Medications Times are shown in EDT. Scheduled Medication Order 09/02/2018 09/03/2018 09/04/2018 aspirin tablet 325 mg (COMPLETED)(Linked Group 1) 325 mg, Oral, Once, On Fri09/04/18 at 0906, For 1 dose, Do not exceed 4 grams of aspirin in a 24 hr period. If given for pain, use the following pain scale: Mild Pain = Pain Score of 1-3, CPOT 1-2 Moderate Pain = Pain Score of 4-6, CPOT 3-4 Severe Pain = Pain Score of 7-10, CPOT 5-8 0925 (Given - Provid er: Sabrina Castañeda RN) PRN Medication Order 09/02/2018 09/03/2018 09/04/2018 acetaminophen (TYLENOL) tablet 650 mg 650 mg, Oral, Every 4 Hours PRN, Mild Pain, Fever, temperature greater than 101F, Starting on Fri09/04/18 at 1141 fentaNYL citrate (PF) (SUBLIMAZE) injection (CANCELED) As Needed, Starting on Fri09/04/18 at 1122 1122 (Given - Provid er: Bruna Lubin RN) iopamidol (ISOVUE-370) 76 % injection (CANCELED) As Needed, Starting on Fri09/04/18 at 1133 1133 (Given - Provid er: Ifeanyi Dillon MD) lidocaine (XYLOCAINE) 1 % injection (CANCELED) As Needed, Starting on Fri09/04/18 at 1122 1122 (Given - Provid er: Ifeanyi Dillon MD) midazolam (VERSED) injection (CANCELED) As Needed, Starting on Fri09/04/18 at 1122 1122 (Given - Provid er: Bruna Lubin RN) nicardipine (CARDENE) 100 MCG/ML 400 mcg, nitroglycerin 400 mcg, heparin (porcine) 5,000 Units radial artery injection (CANCELED) As Needed, Starting on Fri09/04/18 at 1124 1124 (Given - Provid er: Ifeanyi Dillon MD) Linked Groups Order Group 1: aspirin tablet 325 mg (COMPLETED)Jump to med 325 mg, Oral, Once, On Fri09/04/18 at 0906, For 1 dose, Do not exceed 4 grams of aspirin in a 24 hr period. If given for pain, use the following pain scale: Mild Pain = Pain Score of 1-3, CPOT 1-2 Moderate Pain = Pain Score of 4-6, CPOT 3-4 Severe Pain = Pain Score of 7-10, CPOT 5-8 And aspirin EC tablet 325 mg (CANCELED) 325 mg, Oral, Daily, First dose on Fri09/05/18 at 0900, Swallow tablet whole. Do not crush, chew, or split. Do not exceed 4 grams of aspirin in a 24 hr period. If given for pain, use the following pain scale: Mild Pain = Pain Score of 1-3, CPOT 1-2 Moderate Pain = Pain Score of 4-6, CPOT 3-4 Severe Pain = Pain Score of 7-10, CPOT 5-8 documented in this encounter Care Teams Supervisor Yard Relationship Specialty Start Date End Date Elvin Dolan MD [address] [place] [facility] [address] [facility] [place] [address] PCP - General Adolescent Medicine 09/04/18 documented as of this encounter
--- OUTSIDE RECORDS SUMMARY | 2024-01-26 13:52 | XMS_ITS | Clinical Summary ---
Author Organization Healthcare Address [facility] [place] [address] Care Team Providers Care Director Cpg Name Role Phone Elvin Dolan MD Primary Care Provider + [phone] Family History Medical History Relation Name Comments Arthritis Mother Heart failure Mother Hypertension Mother Leukemia Mother's Brother Relation Name Status Comments Mother Mother's Brother Social History Tobacco Use Types Packs/Day Years Used Date Smoking Tobacco: Never Alcohol Use Standard Drinks/Week Comments Yes 0 (1 standard drink = 0.6 oz pur e alcohol) Comments Unknown Sex and Gender Information Value Date Recorded Sex Assigned at Not on file Legal Sex Female 6:48 PM EDT Gender Identity Not on file Sexual Orientation Not on file Last Filed Vital Signs Vital Sign Reading Time Taken Comments Blood Pressure - - Pulse - - Temperature - - Respiratory Rate - - Oxygen Saturation - - Inhaled Oxygen Concentration - - Weight 96.6 kg (213 lb 0.1 oz) 03/14/2014 1:07 P M EST Height 172.7 cm (5' 8 ) 03/14/2014 1:07 PM EST Body Mass Index 32.39 03/14/2014 1:07 PM EST Plan of Treatment Not on file Care Teams Director Cpg Relationship Specialty Start Date End Date Elvin Dolan MD [address] [place] [address] PCP - General 07/21/20
--- OUTSIDE RECORDS SUMMARY | 2024-01-26 13:52 | XMS_ITS | Encounter Summary ---
Author Organization Healthcare Address [address] [place] [address] Care Team Providers Care Pension Manager Name Role Phone Unavailable Primary Care Provider Unavailabl e Encounter Details Date Type Department Care Team (Late st Contact Info) Description 03/14/2014 [facility] Vitals Encounter [facility] [address] [place] [address] Provider, MD Juan Daniel [address] [place] [id number] Social History Tobacco Use Types Packs/Day Years Used Date Smoking Tobacco: Never Assessed Comments Unknown Sex and Gender Information Value [...] Mass Index 32.39 03/14/2014 1:07 PM EST documented in this encounter Plan of Treatment Not on file documented as of this encounter Visit Diagnoses Not on filedocumented in this encounter
--- OUTSIDE RECORDS SUMMARY | 2024-01-26 13:52 | XMS_ITS | Encounter Summary ---
[facility] Organization [facility] Address [address] [place] [address] Care Team Providers Care Legal Summer Intern Name Role Phone Elvin Dolan MD Primary Care Provider [phone] Reason for Visit * Auth/Cert Specialty Diagnoses / Procedures Referred By Contac t Referred To Contact Diagnoses Abnormal stress test +STRESS Procedures OH CATH PLMT L HRT & ARTS W/NJX & ANGIO IMG S&I Left Heart Cath Referral ID Status Reason Start Date Expiration Date Visits Re quested Visits Authorized [id number] 1 1 Encounter Details Date Type Department Care Team (Late st Contact Info) Description 09/04/2018 10:21 AM EDT - 09/04/2018 11:21 AM EDT Surgery [facility] [employer] [address] [place] [address] Ifeanyi Dillon MD [address] [facility] [address] [place] [address] Left Heart Cath Social History Tobacco Use Types Packs/Day Years [...] Sign Reading Time Taken Comments Blood Pressure 172/78 09/04/2018 11:17 AM EDT Pulse 67 09/04/2018 11:17 AM EDT Temperature 37 ??C (98.6 ??F) 09/04/2018 8:45 AM EDT Respiratory Rate 18 09/04/2018 11:1 7 AM EDT Oxygen Saturation 98% 09/04/2018 11: 17 AM EDT Inhaled Oxygen Concentration - - Weight 92.5 kg (203 lb 14.8 oz) 09/04/2018 8:45 AM EDT Height 172.7 cm (5' 8 ) 09/04/2018 8:45 AM EDT Body Mass Index 31.01 09/04/2018 8:45 AM EDT documented in this encounter Discharge Instructions * Attachments The following attachments cannot be sent through Care Everywhere. * Angina Pectoris (Palestinian) * Moderate Conscious Sedation Adult Care After (Palestinian) * Coronary Angiogram (Palestinian) * Radial Site Care (Palestinian) documented in this encounter Medications at Time [...] Dillon MD - 09/04/2018 8:58 AM EDT [facility] Cardiology Consult Note [facility] Patient Identification: Vanda More [id number] y.o. female 1940 Date of Consultation: 09/04/18 Reason for Consultation: Abnormal stress test PCP: Elvin Dolan MD Primary staffing consultant: Dr. Granados History of Present Illness: Ms. [...] artifact. She therefore was set up for C plus/minus CBI. She has no new complaints today. Past History: Past Medical History: Diagnosis Date ??? Anxiety ??? CHF (congestive heart failure) (CMS/HCC) ??? Chronic kidney disease ??? GERD (gastroesophageal [...] GI artifact. - Patient presents today for [facility] plus/minus CBI. The risks, benefits, and alternatives [...] Associated Diagnosis Comments CARDIAC CATHETERIZATION Routine 09/05/19 19 11:32 AM EDT Abnormal stress test HEMOGLOBIN [...] the left radial artery using standard 6 Slovenian catheters. ??No complications. ??Hemostasis using a radial band. Ifeanyi Dillon MD CV CARDIAC CATH ORDERABLES [facility] al Result * (ABNORMAL) Comprehensive Metabolic Panel (09/04/2018 8:54 AM EDT) Glucose 99 65 - 99 mg/dL 09/04/2018 10:01 AM EDT [facility] BUN 22 8 - 23 mg/dL 09/04/2018 10:01 AM EDT [facility] Creatinine 1.41(H) 0.57 - 1.00 mg/dL 09/04/2018 10:01 AM EDT [facility] Sodium 143 136 - 145 mmol/L 09/04/2018 10:01 AM EDT [facility] Potassium 4.3 3.5 - 5.2 mmol/L 09/04/2018 10:01 AM EDT [facility] Chloride 105 98 - 107 mmol/L 09/04/2018 10:01 AM EDT [facility] CO2 25.0 22.0 - 29.0 mmol/L 09/04/2018 10:01 AM EDT [facility] Calcium 9.3 8.6 - 10.5 mg/dL 09/04/2018 10:01 AM EDT [facility] Total Protein 6.3 6.0 - 8.5 g/dL 09/04/2018 10:01 AM [facility] Albumin 3.70 3.50 - 5.20 g/dL 09/04/2018 10:01 AM [facility] ALT (SGPT) 13 1 - 33 U/L 09/04/2018 10:01 AM EDT [facility] AST (SGOT) 20 1 - 32 U/L 09/04/2018 10:01 AM T [facility] Alkaline Phosphatase 108 39 - 117 U/L 09/04/2018 10:01 AM [facility] Total Bilirubin 0.4 0.2 - 1.2 mg/dL 09/04/2018 10:01 AM [facility] eGFR Non Amer 36(L) >60 mL/min/1.7 3 09/04/2018 10:01 AM [facility] Globulin 2.6 gm/dL 09/04/2018 10:01 AM [facility] A/G Ratio 1.4 g/dL 09/04/2018 10:01 AM [facility] BUN/Creatinine Ratio 15.6 7.0 - 25.0 09/04/2018 10:01 AM [facility] Anion Gap 13.0 5.0 - 15.0 mmol/L 09/04/2018 10:01 AM T [facility] Blood Line / Unknown 09/04/2018 8: 54 AM EDT 09/04/2018 9:42 AM EDT Narrative [facility] - 09/04/2018 10:01 AM EDT GFR Normal >60 Chronic Kidney Disease <60 Kidney Failure <15 Ifeanyi Dillon MD LAB BLOOD ORDERABLES Final Res ult [facility]
[address] [place] [address], * Hemoglobin A1c (09/04/2018 8:54 AM EDT) Hemoglobin A1C 5.30 4.80 - 5.60 % 09/04/2018 11:16 AM EDT [facility] Blood Line / Unknown 09/04/2018 8: 54 AM EDT 09/04/2018 9:19 AM EDT [facility] - 09/04/2018 11:16 AM EDT Hemoglobin A1C Ranges: Increased Risk for Diabetes ??5.7% to 6.4% Diabetes ? >= 6.5% Diabetic Goal ?< 7.0% Alexa Denise [employer] LAB BLOOD ORDERABLES Final Result [facility]
[address] [place] [address], * (ABNORMAL) Lipid Panel (09/04/2018 8:54 AM EDT) Total Cholesterol 178 0 - 200 mg/dL 09/04/2018 9:39 AM EDT [facility] Triglycerides 84 0 - 150 mg/dL 09/04/2018 9:39 AM EDT [facility] HDL Cholesterol 63(H) 40 - 60 mg/dL 09/04/2018 9:39 AM EDT [facility] LDL Cholesterol 98 0 - 100 mg/dL 09/04/2018 9:39 AM EDT [facility] VLDL Cholesterol 16.8 mg/dL 09/05/19 19 9:39 AM EDT [facility] LDL/HDL Ratio 1.56 09/04/2018 9:39 AM EDT [facility] Blood Line / Unknown 09/04/2018 8: 54 AM EDT 09/04/2018 9:19 AM EDT [facility] - 09/04/2018 9:39 AM EDT Cholesterol [...] BLOOD ORDERABLES Final Result Performing Organization Address [facility]/State/[facility] Co de Phone Number [facility]
[address] [place] [address], * SCANNED - CARDIOLOGY (09/04/2018) Anatomical Region Laterality Modality Other [facility] Onbase CV CARDIAC SERVICES ORDERABLE S Final Result * SCANNED - TELEMETRY (09/04/2018) Anatomical Region Laterality Modality Other [facility] Onbase ECG ORDERABLES Final Result documented in this [...] Given 09/04/2018 9:25 AM EDT 325 mg fentaNYL citrate (PF) (SUBLIMAZE) injection As Needed, Starting on Fri09/04/18 at 1122 Given 09/04/2018 11:22 AM EDT 50 mcg iopamidol (ISOVUE-370) 76 % injection As Needed, Starting on Fri09/04/18 at 1133 Given 09/04/2018 11:33 AM EDT 57 mL lidocaine (XYLOCAINE) 1 % injection As Needed, Starting on Fri09/04/18 at 1122 Given 09/04/2018 11:22 AM EDT 5 mL Wrist Left midazolam (VERSED) injection As Needed, Starting on Fri09/04/18 at 1122 Given 09/04/2018 11:22 AM EDT 2 mg nicardipine (CARDENE) 100 MCG/ML 400 mcg, nitroglycerin 400 mcg, heparin (porcine) 5,000 Units radial artery injection As Needed, Starting on Fri09/04/18 at 1124 Given 09/04/2018 11:24 AM EDT documented in this encounter Active and Recently [...] 5-8 documented in this encounter Care Teams Legal Summer Intern Relationship Specialty Start Date End Date Elvin Dolan MD [address] [facility] [address] [place] [id number] PCP - General Adolescent Medicine 09/04/18 documented as of this encounter
--- NOTE | 2024-01-26 14:12 | EXP.PAIN.SOA ---
[facility] Disclaimer: The information contained in this section may have been updated after the patient was seen, as this information can be updated by other users. Medical History Pneumonia Hyperlipidemia Congestive heart failure Surgical History No history of previous surgery Family History Other No significant family history Social History Smoking Status: Unknown if ever smoked alcohol intake: never substance use type: denies use current occupational status: other Travel in the last 8 weeks: None PM Subjective & Objective Subjective Subjective:: Patient is a pleasant 83-year-old female who presents today for follow-up of bilateral infrapatellar nerve block on 01/13/2024. Today she rates her pain a 5 out of 10. Patient states that she has had at least 50 to 60% improvement and feels like it still helping. Patient does feel like the combination of the last injections in the knees is working well. She states that she has been able to get up and walk around more with decreased pain overall. She does also state even her prior hip pain is not present any longer. Patient's daughter does present today with her and even states that she can tell a difference even just talking on the phone with her. Patient is prescribed tramadol from her primary care and compounded cream from our office. Her Miko has been reviewed and is appropriate. Review of Systems: General: No recent weight changes, no fever, no sleep disturbances Respiratory: No cough, no shortness of air, no recurring pulmonary infections Cardiovascular/peripheral vascular: No chest pain, no palpitations, no edema, no shortness of breath Gastrointestinal: No new onset incontinence, normal bowel movements reported Genitourinary: No new onset incontinence Musculoskeletal: Knee pain Psychiatric: [Normal mood/affect] Neurological: [Denies weakness in extremities], [denies balance issues] Pain at rest (0-10 scale): 5 Objective Objective:: Physical Exam: General: Alert and oriented x3, no acute distress, pleasant and cooperative Lungs: Respirations even and unlabored, symmetrical chest expansion Eyes: PERRL Musculoskeletal: Flexion and extension of bilateral knees somewhat guarded secondary to pain, [antalgic gait noted] Neurological: Speech clear, no gross sensory deficit Has patient had previous pain injection?: Yes Percent improvement in pain since last injection: 50 to 60% Conservative treatment options previously tried: Home exercise plan Length of treatment: Longer than 12 weeks Meds Home Medications and Allergies Home Medications ?Medication ?Instructions ?Recorded ?Confirmed ?Type aspirin 81 mg chewable tablet 81 mg PO DAILY 12/15/17 01/13/24 History carvedilol 25 mg tablet 25 mg PO BID 12/15/17 01/13/24 History furosemide 20 mg tablet 20 mg PO DAILY 12/15/17 01/13/24 History tramadol 50 mg tablet 50 mg PO Q4-6H PRN Pain 12/15/17 01/13/24 History famotidine 20 mg tablet 20 mg PO DAILY 12/24/17 01/13/24 History atorvastatin 40 mg tablet 40 mg PO DAILY 09/05/21 01/13/24 History eszopiclone 2 mg tablet 2 mg PO HS 09/22/23 01/13/24 History metolazone 2.5 mg tablet 2.5 mg PO DAILY 09/22/23 01/13/24 History ondansetron 4 mg disintegrating 4 mg PO Q6H PRN nausea and 09/22/23 01/13/24 Rx tablet vomiting 4 days #16 tabs New Prescriptions to Start Prescriptions: Allergies Allergy/AdvReac Type Severity Reaction Status Date / Time metaxalone Allergy Nausea Verified 12/02/23 12:05 Assessment and Plan *Assessment and plan (1) Bilateral knee pain: Status: Acute Qualifiers: Chronicity: chronic Qualified Code(s): M25.561 - Pain in right knee; M25.562 - Pain in left knee; G89.29 - Other chronic pain Category: Medical Code(s): M25.561 - Pain in right knee; M25.562 - Pain in left knee Plan Patient has had significant improvement and does not require any additional injection therapy at this time. Patient will return to clinic in 1 month for reevaluation of symptoms and plan of care. Patient has been instructed to contact the clinic with any concerns before the next appointment. Dr. Cleary has reviewed this note and agrees with this plan of care. This note was dictated using voice recognition software and make contain errors or omissions. All injections are used with Lidocaine or Bupivacaine and Depo Medrol.
[2024-01-26 14:59] VITALS: BP 110/46; PULSE 74; RESP 18; O2SAT 98; BMI 23.2
== END 2024-01-26 23:59 | disposition home or self-care (01) ==
LOC: SC.PAIN 13:51
PROVIDERS: PCP Internal Medicine Adolescent Medicine; Visit Provider Nurse Practitioner Family
DX: M25.561 Pain in right knee (principal); M25.562 Pain in left knee; G89.29 Other chronic pain
CPT/HCPCS: 99212; G0463

== ENCOUNTER 2024-02-23 14:16 | Outpatient (POV) | payer MEDICARE, SELFPAY ==
--- NOTE | 2024-02-23 14:45 | EXP.PAIN.SOA ---
[facility] Disclaimer: The information contained in this section may have been updated after the patient was seen, as this information can be updated by other users. Medical History Pneumonia Hyperlipidemia Congestive heart failure Surgical History No history of previous surgery Family History Other No significant family history Social History Smoking Status: Unknown if ever smoked alcohol intake: never substance use type: denies use current occupational status: retired Travel in the last 8 weeks: None Have you lived/traveled outside US in past 30 days?: No Contact w/someone who lives/traveled outside US past 30 days?: No Exposure to someone with infectious disease in past 14 days?: No Do you have a fever (greater than 100.4 F or 38 C)?: No Have you tested positive for COVID-19: No Exposed to someone with COVID-19 in past 14 days?: No Do you have a sore throat?: No Do you have a cough?: No Do you have any weakness?: No Do you have any diarrhea?: No Are you experiencing any unusual bleeding?: No Do you have any muscle aches/pain?: No Do you have any abdominal pain?: No Are you experiencing loss of taste or smell?: No PM Subjective & Objective Subjective Subjective:: Patient is a pleasant 83-year-old female who presents today for worsening knee pain. Today she rates her pain an 8 out of 10. She denies any new falls or injuries. She is experiencing still the same chronic achy, throbbing sensation that is all in her knees with increased ambulation or walking. Patient feels like her injections have officially worn off. Patient states that the pain while she is seated is okay and it is just when she is up walking. Patient does have rubbing and grinding that she feels like is present with ambulation. Patient did have intra-articular injections back in November that did provide significant relief and then had infrapatellar nerve blocks on January 12 that did provide 50 to 60% improvement. Patient does state that she feels like this combination has really helped provide improved function with decreased pain. Patient does state the pain is very bothersome and is interfering with her ability perform activities of daily living such as cooking and cleaning. Her Miko has been reviewed and is appropriate. Review of Systems: General: No recent weight changes, no fever, no sleep disturbances Respiratory: No cough, no shortness of air, no recurring pulmonary infections Cardiovascular/peripheral vascular: No chest pain, no palpitations, no edema, no shortness of breath Gastrointestinal: No new onset incontinence, normal bowel movements reported Genitourinary: No new onset incontinence Musculoskeletal: Bilateral knee pain Psychiatric: [Normal mood/affect] Neurological: [Denies weakness in extremities], [denies balance issues] Pain at rest (0-10 scale): 8 Objective Objective:: Physical Exam: General: Alert and oriented x3, no acute distress, pleasant and cooperative Lungs: Respirations even and unlabored, symmetrical chest expansion Eyes: PERRL Musculoskeletal: Flexion and extension of bilateral knees somewhat guarded secondary to pain, [antalgic gait noted] Neurological: Speech clear, no gross sensory deficit Has patient had previous pain injection?: No Conservative treatment options previously tried: Home exercise plan Length of treatment: Longer than 12 weeks Meds Home Medications and Allergies Home Medications ?Medication ?Instructions ?Recorded ?Confirmed ?Type aspirin 81 mg chewable tablet 81 mg PO DAILY 12/15/17 01/26/24 History carvedilol 25 mg tablet 25 mg PO BID 12/15/17 01/26/24 History furosemide 20 mg tablet 20 mg PO DAILY 12/15/17 01/26/24 History tramadol 50 mg tablet 50 mg PO Q4-6H PRN Pain 12/15/17 01/26/24 History famotidine 20 mg tablet 20 mg PO DAILY 12/24/17 01/26/24 History atorvastatin 40 mg tablet 40 mg PO DAILY 09/05/21 01/26/24 History eszopiclone 2 mg tablet 2 mg PO HS 09/22/23 01/26/24 History metolazone 2.5 mg tablet 2.5 mg PO DAILY 09/22/23 01/26/24 History ondansetron 4 mg disintegrating 4 mg PO Q6H PRN nausea and 09/22/23 01/26/24 Rx tablet vomiting 4 days #16 tabs New Prescriptions to Start Prescriptions: Allergies Allergy/AdvReac Type Severity Reaction Status Date / Time metaxalone Allergy Nausea Verified 12/02/23 12:05 Assessment and Plan *Assessment and plan (1) Bilateral knee pain: Status: Acute Qualifiers: Chronicity: chronic Qualified Code(s): M25.561 - Pain in right knee; M25.562 - Pain in left knee; G89.29 - Other chronic pain Category: Medical Code(s): M25.561 - Pain in right knee; M25.562 - Pain in left knee (2) Degenerative disc disease, lumbar: Status: Acute Category: Medical Code(s): M51.369 - Other intervertebral disc degeneration, lumbar region without mention of lumbar back pain or lower extremity pain Plan Patient is experiencing worsening pain in her bilateral knees with limited range of motion. I did review over with the patient that I do believe she would benefit from repeat intra-articular knee injections. Risk and benefits were discussed with patient and she would like to proceed forward with this plan of care. Patient has tried and failed conservative therapy including continued at home stretching exercise for longer than 12 weeks and between injections. Patient did have her first set of intra-articular knee injections on 12/02/2023 that did provide 90% improvement with overall improved function and decreased pain. These initial injections did provide 2 weeks of very good relief and then slowly wore off. We will schedule the patient for repeat bilateral intra-articular knee injections. These will be done without fluoroscopic or ultrasound guidance. Patient has been instructed to contact the clinic with any concerns before the next appointment. Dr. Cleary has reviewed this note and agrees with this plan of care. This note was dictated using voice recognition software and make contain errors or omissions. All injections are used with Lidocaine, Bupivacaine and Depo Medrol. Occasionally urine drug screen is needed to verify patient's compliance with our office pain contract. This is ordered based off specific treatments related to chronic pain with the potential to abuse certain medications.
[2024-02-23 15:46] VITALS: BP 125/73; PULSE 72; RESP 14; O2SAT 98; BMI 23.2
== END 2024-02-23 23:59 | disposition home or self-care (01) ==
LOC: SC.PAIN 14:17
PROVIDERS: PCP Internal Medicine Adolescent Medicine; Visit Provider Nurse Practitioner Family
DX: M25.561 Pain in right knee (principal); M25.562 Pain in left knee; G89.29 Other chronic pain; M51.369 Other intervertebral disc degeneration, lumbar region without mention of lumbar back pain or lower extremity pain; Z73.89 Other problems related to life management difficulty
CPT/HCPCS: 99212; G0463

== ENCOUNTER 2024-03-30 13:27 | Day surgery (SDC) | payer MEDICARE, SELFPAY ==
[2024-03-30 14:05] VITALS: BP 148/77; PULSE 48; RESP 18; O2SAT 94; BMI 23.7
--- NOTE | 2024-03-30 14:16 | EXP.PAIN.PRO ---
Procedure Date: 03/30/24 Time: 14:00 Anesthesiologist:: Jim Araya CRNA Complications:: None Pre-procedure Diagnosis:: DJD bilateral knee. Chronic bilateral knee pain. Post-procedure Diagnosis:: Same. Indications for Procedure:: Patient is a pleasant 83-year-old female comes our clinic today for repeat bilateral intra-articular knee injections of cortisone and local anesthetic. Patient describes bilateral knee pain as constant, dull, aching. She rates her pain 7/10. Procedure Details:: Details of the procedure explained to the patient. The patient taken procedure room placed in the sitting position. The over the right knee was cleaned using chlorhexidine as a cleansing solution. Using a 22-gauge inch and half needle the right knee joint was accessed from the anterior lateral position. After negative aspiration 4 cc of 1% lidocaine +4 cc of 0.25% Marcaine and 40 mg of Depo-Medrol was injected. Patient tolerated procedure without difficulty. There are no complications. Details of the procedure explained to the patient. The patient taken procedure room placed in the sitting position. The over the left knee was cleaned using chlorhexidine as a cleansing solution. Using a 22-gauge inch and half needle the left knee joint was accessed from the anterior lateral position. After negative aspiration 4 cc of 1% lidocaine +4 cc of 0.25% Marcaine and 40 mg of Depo-Medrol was injected. Patient tolerated procedure without difficulty. There are no complications. Plan and Disposition:: Patient was discharged without incident.
[2024-03-30 14:19] VITALS: BP 135/63; PULSE 73; RESP 18; O2SAT 98
[2024-03-30] MEDS: BUPIVACAINE 0.25% 10ML INJ 25 MG IJ (14:40)
[2024-03-30] MEDS: LIDOCAINE 1% 5ML PF VIAL 5 ML (14:41)
[2024-03-30 14:43] VITALS: BP 142/52; PULSE 72; RESP 18; O2SAT 97
[2024-03-30 14:44] VITALS: BP 142/52; PULSE 72; RESP 18; O2SAT 97
== END 2024-03-30 14:19 | disposition home or self-care (01) ==
PROVIDERS: PCP Internal Medicine Adolescent Medicine; Visit Provider Nurse Anesthetist, Certified Registered
DX: M17.0 Bilateral primary osteoarthritis of knee (principal); M25.561 Pain in right knee; M25.562 Pain in left knee; G89.29 Other chronic pain
CPT/HCPCS: 20610; J1010

== ENCOUNTER 2024-04-19 13:23 | Outpatient (POV) | payer MEDICARE, SELFPAY ==
--- NOTE | 2024-04-19 13:30 | EXP.PAIN.SOA ---
[facility] Disclaimer: The information contained in this section may have been updated after the patient was seen, as this information can be updated by other users. Medical History Pneumonia Hyperlipidemia Congestive heart failure Surgical History No history of previous surgery Family History Other No significant family history Social History Smoking Status: Unknown if ever smoked alcohol intake: never substance use type: denies use current occupational status: other Travel in the last 8 weeks: None Have you lived/traveled outside [place] in past 30 days?: No Contact w/someone who lives/traveled outside [place] past 30 days?: No Exposure to someone with infectious disease in past 14 days?: No Do you have a fever (greater than 100.4 F or 38 C)?: No Have you tested positive for COVID-19: No Exposed to someone with COVID-19 in past 14 days?: No Do you have a sore throat?: No Do you have a cough?: No Do you have any weakness?: No Do you have any diarrhea?: No Are you experiencing any unusual bleeding?: No Do you have any muscle aches/pain?: No Do you have any abdominal pain?: No Are you experiencing loss of taste or smell?: No PM Subjective & Objective Subjective Subjective:: Patient is a pleasant 83-year-old female who presents today for follow-up of bilateral intra-articular knee injections on 03/30/2024. Today she rates her pain a 0 out of 10. She denies any new trauma or injury. Patient does state that she had approximately 75% improvement. She states that she has been able to move around easier with overall decreased pain and feels much more functional. Patient has had significant improvement in her bilateral knee pain between intra-articular injections and infrapatellar nerve blocks. Patient has been prescribed tramadol from her primary care and compounded cream from our office. She denies any side effects and is appropriate. Review of Systems: General: No recent weight changes, no fever, no sleep disturbances Respiratory: No cough, no shortness of air, no recurring pulmonary infections Cardiovascular/peripheral vascular: No chest pain, no palpitations, no edema, no shortness of breath Gastrointestinal: No new onset incontinence, normal bowel movements reported Genitourinary: No new onset incontinence Musculoskeletal: Bilateral knee pain Psychiatric: [Normal mood/affect] Neurological: [Denies weakness in extremities], [denies balance issues] Pain at rest (0-10 scale): 0 Objective Objective:: Physical Exam: General: Alert and oriented x3, no acute distress, pleasant and cooperative Lungs: Respirations even and unlabored, symmetrical chest expansion Eyes: PERRL Musculoskeletal: Flexion and extension of bilateral knees somewhat guarded secondary to pain, [antalgic gait noted] Neurological: Speech clear, no gross sensory deficit Has patient had previous pain injection?: Yes Percent improvement in pain since last injection: 75% Conservative treatment options previously tried: Home exercise plan Length of treatment: Longer than 12 weeks Meds Home Medications and Allergies Home Medications ?Medication ?Instructions ?Recorded ?Confirmed ?Type aspirin 81 mg chewable tablet 81 mg PO DAILY 12/15/17 03/30/24 History carvedilol 25 mg tablet 25 mg PO BID 12/15/17 03/30/24 History furosemide 20 mg tablet 20 mg PO DAILY 12/15/17 03/30/24 History tramadol 50 mg tablet 50 mg PO Q4-6H PRN Pain 12/15/17 03/30/24 History famotidine 20 mg tablet 20 mg PO DAILY 12/24/17 03/30/24 History atorvastatin 40 mg tablet 40 mg PO DAILY 09/05/21 03/30/24 History eszopiclone 2 mg tablet 2 mg PO HS 09/22/23 03/30/24 History metolazone 2.5 mg tablet 2.5 mg PO DAILY 09/22/23 03/30/24 History ondansetron 4 mg disintegrating 4 mg PO Q6H PRN nausea and 09/22/23 03/30/24 Rx tablet vomiting 4 days #16 tabs New Prescriptions to Start Prescriptions: Allergies Allergy/AdvReac Type Severity Reaction Status Date / Time metaxalone Allergy Nausea Verified 12/02/23 12:05 Assessment and Plan *Assessment and plan (1) Bilateral knee pain: Status: Acute Qualifiers: Chronicity: chronic Qualified Code(s): M25.561 - Pain in right knee; M25.562 - Pain in left knee; G89.29 - Other chronic pain Category: Medical Code(s): M25.561 - Pain in right knee; M25.562 - Pain in left knee (2) Degenerative disc disease, lumbar: Status: Acute Category: Medical Code(s): M51.369 - Other intervertebral disc degeneration, lumbar region without mention of lumbar back pain or lower extremity pain Plan Patient has had significant improvement following her intra-articular injections and does not require any additional injection therapy at this time. We will follow-up with the patient in 6 weeks for reevaluation of symptoms and plan of care. Patient has been instructed to contact the clinic with any concerns before the next appointment. Dr. Cleary has reviewed this note and agrees with this plan of care. This note was dictated using voice recognition software and make contain errors or omissions. All injections are used with Lidocaine, Bupivacaine and Depo Medrol. Occasionally urine drug screen is needed to verify patient's compliance with our office pain contract. This is ordered based off specific treatments related to chronic pain with the potential to abuse certain medications.
[2024-04-19 14:11] VITALS: BP 133/52; PULSE 74; RESP 18; O2SAT 98; BMI 24.1
== END 2024-04-19 23:59 | disposition home or self-care (01) ==
LOC: SC.PAIN 13:24
PROVIDERS: PCP Internal Medicine Adolescent Medicine; Visit Provider Nurse Practitioner Family
DX: M25.561 Pain in right knee (principal); M25.562 Pain in left knee; G89.29 Other chronic pain; M51.369 Other intervertebral disc degeneration, lumbar region without mention of lumbar back pain or lower extremity pain
CPT/HCPCS: 99212; G0463

== ENCOUNTER 2024-05-31 11:22 | Outpatient (POV) | payer MEDICARE, SELFPAY ==
--- NOTE | 2024-05-31 11:23 | A.OFFVIS_ITS ---
[facility] Disclaimer: The information contained in this section may have been updated after the patient was seen, as this information can be updated by other users. Medical History Pneumonia Hyperlipidemia Congestive heart failure Surgical History No history of previous surgery Family History Other No significant family history Social History Smoking Status: Unknown if ever smoked alcohol intake: never substance use type: denies use current occupational status: other Travel in the last 8 weeks: None PM Subjective & Objective Subjective Subjective:: Patient is a pleasant 83-year-old female who presents today for 6-week follow- up. Today she rates her pain a 9 out of 10. Patient did previously have bilateral intra-articular knee injections in March that did provide 75% improvement and had been working significantly well. She does state today that she is back to her baseline. She states that her right knee is worse than the left. She does describe it as a constant aching sensation that is worse with increased activity or ambulation. Patient denies any new falls or injuries. Patient is interested in repeating her prior injections as the pain is interfering with her ability perform activities of daily living such as cooking and cleaning. Patient does make mention that her last injection she ended up getting a bill for and was told by insurance that it was coded for ambulatory surgery. Patient is unsure if this was taking care of.patient is prescribed tramadol from her PCP and compounded cream from our office. Her Miko has been reviewed and is appropriate. Review of Systems: General: No recent weight changes, no fever, no sleep disturbances Respiratory: No cough, no shortness of air, no recurring pulmonary infections Cardiovascular/peripheral vascular: No chest pain, no palpitations, no edema, no shortness of breath Gastrointestinal: No new onset incontinence, normal bowel movements reported Genitourinary: No new onset incontinence Musculoskeletal: Bilateral knee pain Psychiatric: [Normal mood/affect] Neurological: [Denies weakness in extremities], [denies balance issues] Pain at rest (0-10 scale): 9 Objective Objective:: Physical Exam: General: Alert and oriented x3, no acute distress, pleasant and cooperative Lungs: Respirations even and unlabored, symmetrical chest expansion Eyes: PERRL Musculoskeletal: Flexion and extension of bilateral knees somewhat guarded secondary to pain, [antalgic gait noted] Neurological: Speech clear, no gross sensory deficit Has patient had previous pain injection?: No Conservative treatment options previously tried: Home exercise plan Length of treatment: Longer than 12 weeks Meds Home Medications and Allergies Home Medications ?Medication ?Instructions ?Recorded ?Confirmed ?Type aspirin 81 mg chewable tablet 81 mg PO DAILY 12/15/17 05/31/24 History carvedilol 25 mg tablet 25 mg PO BID 12/15/17 05/31/24 History furosemide 20 mg tablet 20 mg PO DAILY 12/15/17 05/31/24 History tramadol 50 mg tablet 50 mg PO Q4-6H PRN Pain 12/15/17 05/31/24 History famotidine 20 mg tablet 20 mg PO DAILY 12/24/17 05/31/24 History atorvastatin 40 mg tablet 40 mg PO DAILY 09/05/21 05/31/24 History eszopiclone 2 mg tablet 2 mg PO HS 09/22/23 05/31/24 History metolazone 2.5 mg tablet 2.5 mg PO DAILY 09/22/23 05/31/24 History ondansetron 4 mg disintegrating 4 mg PO Q6H PRN nausea and 09/22/23 05/31/24 Rx tablet vomiting 4 days #16 tabs New Prescriptions to Start Prescriptions: Allergies Allergy/AdvReac Type Severity Reaction Status Date / Time metaxalone Allergy Nausea Verified 12/02/23 12:05 Assessment and Plan *Assessment and plan (1) Bilateral knee pain: Status: Acute Qualifiers: Chronicity: chronic Qualified Code(s): M25.561 - Pain in right knee; M25.562 - Pain in left knee; G89.29 - Other chronic pain Category: Medical Code(s): M25.561 - Pain in right knee; M25.562 - Pain in left knee Plan I did discuss with the patient that we will reach out to billing and see if we can get any updated information regarding her last injections how they were coded. I did discuss with patient due to her worsening pain and limited range of motion of her knees that she may benefit from repeat injections. Risk and benefits of these injections were explained to the patient and she would like to proceed forward with this plan of care. Patient did get 75% relief with her last intra-articular knee injections and did provide to 4 months of relief. Patient has had longstanding chronic knee pain for years. Patient will be scheduled for repeat intra-articular knee injections bilaterally. These will be done without fluoroscopic or ultrasound guidance. Patient has been instructed to contact the clinic with any concerns before the next appointment. Dr. Cleary has reviewed this note and agrees with this plan of care. This note was dictated using voice recognition software and make contain errors or omissions. All injections are used with Lidocaine, Bupivacaine and Depo Medrol. Occasionally urine drug screen is needed to verify patient's compliance with our office pain contract. This is ordered based off specific treatments related to chronic pain with the potential to abuse certain medications.
[2024-05-31 11:46] VITALS: BP 118/61; PULSE 75; RESP 14; O2SAT 98; BMI 23.6
== END 2024-05-31 23:59 | disposition home or self-care (01) ==
LOC: SC.PAIN 11:23
PROVIDERS: PCP Internal Medicine Adolescent Medicine; Visit Provider Nurse Practitioner Family
DX: M25.561 Pain in right knee (principal); M25.562 Pain in left knee; G89.29 Other chronic pain; Z73.89 Other problems related to life management difficulty
CPT/HCPCS: 99212; G0463

== ENCOUNTER 2024-06-22 14:45 | Day surgery (SDC) | payer MEDICARE, SELFPAY ==
[2024-06-22 14:53] VITALS: BP 130/61; PULSE 77; RESP 16; TEMP 36.7; O2SAT 95; BMI 23.4
[2024-06-22 15:19] VITALS: BP 142/58; PULSE 73; RESP 16; O2SAT 97
--- NOTE | 2024-06-22 15:20 | EXP.PAIN.PRO ---
Procedure Date: 06/22/24 Time: 15:15 Anesthesiologist:: Jim Araya CRNA Complications:: None Pre-procedure Diagnosis:: DJD bilateral knee. Chronic bilateral knee pain. Post-procedure Diagnosis:: Same. Indications for Procedure:: Patient is a very pleasant 83-year-old female who comes our clinic today for bilateral intra-articular knee injections cortisone local anesthetic. Patient describes bilateral knee pain as constant, dull, sharp, stabbing. Ambulation is difficult due to bilateral knee pain. She presents today in a wheelchair. She reports responding well to intra-articular cortisone in the past. She rates her pain today 7/10. Procedure Details:: Details of the procedure explained to the patient. The patient taken procedure room placed in the sitting position. The over the left knee was cleaned using chlorhexidine as a cleansing solution. Using a 22-gauge inch and half needle the left knee joint was accessed from the anterior lateral position. After negative aspiration 4 cc of 1% lidocaine +4 cc of 0.25% Marcaine and 40 mg of Depo-Medrol was injected. Patient tolerated procedure without difficulty. There are no complications. Details of the procedure explained to the patient. The patient taken procedure room placed in the sitting position. The over the right knee was cleaned using chlorhexidine as a cleansing solution. Using a 22-gauge inch and half needle the right knee joint was accessed from the anterior lateral position. After negative aspiration 4 cc of 1% lidocaine +4 cc of 0.25% Marcaine and 40 mg of Depo-Medrol was injected. Patient tolerated procedure without difficulty. There are no complications. Plan and Disposition:: Patient was discharged without incident.
[2024-06-22] MEDS: BUPIVACAINE 0.25% 10ML INJ 25 MG IJ (15:23)
[2024-06-22] MEDS: LIDOCAINE 1% 5ML PF VIAL 5 ML (15:23)
[2024-06-22 15:24] VITALS: BP 130/61; PULSE 77; RESP 18; O2SAT 95
[2024-06-22 15:26] VITALS: BP 130/61; PULSE 77; RESP 18; O2SAT 95
== END 2024-06-22 15:19 | disposition home or self-care (01) ==
PROVIDERS: PCP Internal Medicine Adolescent Medicine; Visit Provider Nurse Anesthetist, Certified Registered
DX: M17.0 Bilateral primary osteoarthritis of knee (principal); M25.561 Pain in right knee; M25.562 Pain in left knee; G89.29 Other chronic pain
CPT/HCPCS: 20610; J1010